=== PATIENT | female | born 1940 | race African-American/Black ===

== ENCOUNTER 2016-06-02 20:34 | Outpatient (CLI) | payer MEDICARE, MEDICAID | END 2016-06-02 20:35 | disposition home or self-care (01) | LOC: NAV SJFMSP 20:34 | PROVIDERS: ATTEND Family Medicine | DX: R30.0 Dysuria (principal) | CPT/HCPCS: 87086 ==

== ENCOUNTER 2016-07-10 23:33 | Emergency (ER) | payer MEDICARE, MEDICAID ==
[2016-07-10] MEDS ORDERED: predniSONE 20 MG TAB ONE (23:56)
[2016-07-10] MEDS ORDERED: diphenhydrAMINE HCl 25 MG CAP ONE (23:56)
== END 2016-07-11 | disposition home or self-care (01) ==
LOC: NAV ERS 23:33
DX: T78.40XA Allergy, unspecified, initial encounter (principal); L50.9 Urticaria, unspecified; E78.5 Hyperlipidemia, unspecified; E78.00 Pure hypercholesterolemia, unspecified; I10 Essential (primary) hypertension; F41.9 Anxiety disorder, unspecified; F32.9 Major depressive disorder, single episode, unspecified; Z87.891 Personal history of nicotine dependence
CPT/HCPCS: 99282; J7506

== ENCOUNTER 2016-10-23 13:46 | Outpatient (CLI) | payer MEDICARE, MEDICAID ==
[2016-10-23 14:40] LABS: INR-International Normal Ratio 1.9; Prothrombin Time 22.6 SEC (12.0-14.7)
[2016-10-24 05:18] LABS: PTT 39.8 SEC (22.9-36.1)
== END 2016-10-23 13:47 | disposition home or self-care (01) ==
LOC: NAV LAB 13:46
PROVIDERS: ATTEND Family Medicine
DX: I48.91 Unspecified atrial fibrillation (principal)
CPT/HCPCS: 36415; 85610; 85730

== ENCOUNTER 2016-12-04 06:11 | Emergency (ER) | payer MEDICARE, MEDICAID ==
[2016-12-04] MEDS ORDERED: Milk Of Magnesia 30 ML UDCUP ONE ×2 (06:38→06:58)
[2016-12-04] MEDS ORDERED: Lidocaine Viscous Sol 2% 15 ml UD Cup ONE (06:55)
[2016-12-04] MEDS ORDERED: Ondansetron HCl/PF 4 MG/2 ML Vial ONE (06:55)
[2016-12-04] MEDS ORDERED: Sodium Chloride 0.9% 1,000 ML ONE ×2 (06:55→07:41)
[2016-12-04] MEDS ORDERED: Mag-Al Plus 1200 MG/1200 MG/120 MG/30 ML UDCUP ONE ×2 (06:55→07:13)
[2016-12-04 07:09] LABS: Hemoglobin 11.7 g/dL (12.0-16.0); Mean Corpuscular HGB CONC 30.9 g/dL (32.0-36.0); Mean Corpuscular Volume 87.5 fl (81.0-99.0); Mean Platelet Volume 5.8 fL (7.4-10.4); Platelet Count 239 thou/uL (130-400); RBC Distribution Width 13.9 % (11.5-14.5); Red Blood Cell (RBC) Count 4.32 mill/uL (4.20-5.40)
[2016-12-04 07:10] LABS: #Eosinphils 0.1 thou/uL (0.0-0.7); #Lymphocytes 0.6 thou/uL (1.20-3.40); #Monocytes 0.4 thou/uL (0.11-0.59); #Neutrophils 4.9 thou/uL (1.40-6.50); %Basophils 0.5 % (0.0-1.0); %Lymphocytes 9.4 % (21.0-51.0); %Monocytes 6.5 % (0.0-10.0); %Neutrophils 81.6 % (42.0-75.0); INR-International Normal Ratio 1.9; PTT 35.9 SEC (22.9-36.1); Prothrombin Time 21.9 SEC (12.0-14.7)
[2016-12-04 07:20] LABS: CKMB 1.2 ng/mL (0-6.6); Troponin I 0.015 ng/mL (< 0.028)
[2016-12-04 07:27] LABS: ALT (SGPT) 12 U/L (8-55); AST (SGOT) 21 U/L (5-34); Albumin 4.1 g/dL (3.4-4.8); Alkaline Phosphatase 88 U/L (40-150); Anion Gap 17 mmol/L (10-20); BUN (Urea Nitrogen) 36 mg/dL (9.8-20.1); Bilirubin, Total 0.4 mg/dL (0.2-1.2); CK (CPK) 163 U/L (29-168); Calc. Creatinine Clearance 0 mL/min (70-130); Calcium 8.8 mg/dL (7.8-10.44); Carbon Dioxide 26 mmol/L (23-31); Chloride 104 mmol/L (98-107); Estimated GFR-MDRD 44; Globulin 3.1 g/dL (2.4-3.5); Glucose 99 mg/dL (83-110); Lipase 45 U/L (8-78); Protein, Total 7.2 g/dL (6.0-8.3); Sodium 143 mmol/L (136-145)
[2016-12-04] MEDS ORDERED: Mag-Al Plus 1200 MG/1200 MG/120 MG/30 ML UDCUP PO SCH (07:30)
[2016-12-04 08:25] LABS: Bilirubin Negative (Negative); Blood, Urine Trace (Negative); Clarity Clear (Clear); Glucose, Urine (Dipstick) Negative (Negative); Leukocyte Negative (Negative); Nitrite Negative (Negative); Protein, Urine (Dipstick) Negative (Neg-Trace); Urobilinogen 0.2 mg/dL (0.2-1.0); pH, Urine 5.5 (5.0-9.0)
[2016-12-04 08:36] LABS: Bacteria/HPF Rare-Few HPF (None Seen); Crystals/HPF 1+ STARCH HPF (Negative); Squamous Epithelial 0-3 HPF (0-3); WBC/HPF 0-3 HPF (0-3)
[2016-12-04] MEDS ORDERED: Iopamidol 370 76% 100 ML VIAL ONE (09:00)
[2016-12-04 10:48] LABS: ALT (SGPT) 9 U/L (8-55); AST (SGOT) 17 U/L (5-34); Albumin 3.7 g/dL (3.4-4.8); Alkaline Phosphatase 80 U/L (40-150); Anion Gap 14 mmol/L (10-20); BUN (Urea Nitrogen) 34 mg/dL (9.8-20.1); Bilirubin, Total 0.4 mg/dL (0.2-1.2); Calc. Creatinine Clearance 0 mL/min (70-130); Calcium 8.4 mg/dL (7.8-10.44); Carbon Dioxide 26 mmol/L (23-31); Chloride 106 mmol/L (98-107); Estimated GFR-MDRD 52; Globulin 3.3 g/dL (2.4-3.5); Glucose 104 mg/dL (83-110); Potassium 4.2 mmol/L (3.5-5.1); Sodium 142 mmol/L (136-145)
--- NOTE | 2016-12-04 12:14 | CT ---
CT ABDOMEN AND PELVIS WITH IV AND ORAL CONTRAST: Date: 12/04/16 HISTORY: Abdomen pain. Breast cancer. COMPARISON: 01/08/14. FINDINGS: Visualized lung bases are clear. The liver, spleen, kidneys, adrenal glands, and pancreas have a nor mal CT appearance. Urinary bladder is unremarkable. There is no evidence of bowel obstruction. Appen claudia is not inflamed. There are degenerative changes of the lumbar spine. IMPRESSION: No significant abnormalities are demonstrated to explain abdominal pain. POS: [facility]
[2016-12-04 12:27] LABS: Troponin I 0.019 ng/mL (< 0.028)
[2016-12-04] MEDS ORDERED: HYDROcodone/Acetaminophen 10/325 mg Tablet ONE (12:27)
== END 2016-12-04 12:55 | disposition home or self-care (01) ==
LOC: NAV ERS 06:11
DX: R10.13 Epigastric pain (principal); I48.91 Unspecified atrial fibrillation; E78.5 Hyperlipidemia, unspecified; I10 Essential (primary) hypertension; I49.9 Cardiac arrhythmia, unspecified; F41.9 Anxiety disorder, unspecified; F32.9 Major depressive disorder, single episode, unspecified; Z87.891 Personal history of nicotine dependence; Z79.01 Long term (current) use of anticoagulants; Z79.899 Other long term (current) drug therapy
CPT/HCPCS: 74177; 80053; 81003; 81015; 82550; 82553; 83690; 84484; 85025; 85610; 85730; 93005; 96361; 96374; J2405; J3475; J7050

== ENCOUNTER 2017-03-06 21:23 | Emergency (ER) | payer MEDICARE, MEDICAID ==
[2017-03-06] MEDS ORDERED: Lorazepam 2 MG/ML VIAL ONE (21:42)
== END 2017-03-06 22:02 | disposition home or self-care (01) ==
LOC: NAV ERS 21:23
DX: F41.9 Anxiety disorder, unspecified (principal); F17.220 Nicotine dependence, chewing tobacco, uncomplicated; F32.9 Major depressive disorder, single episode, unspecified; I10 Essential (primary) hypertension; E78.5 Hyperlipidemia, unspecified; I48.91 Unspecified atrial fibrillation; Z79.01 Long term (current) use of anticoagulants; Z79.899 Other long term (current) drug therapy; Z85.3 Personal history of malignant neoplasm of breast
CPT/HCPCS: 96372; J2060

== ENCOUNTER 2017-03-26 20:46 | Emergency (ER) | payer MEDICARE, MEDICAID ==
--- NOTE | 2017-03-26 22:04 | RAD ---
RIGHT FOOT THREE VIEWS: History: Right foot pain. FINDINGS: Lisfranc joint alignment is anatomic. Pes planus is apparent on the lateral view. Hallux valgus and bunion deformity are apparent. Osteoarthritic changes are somewhat pronounced at the tarsal metatars al joint. IMPRESSION: 1. Prominent hallux valgus and bunion deformity. 2. Osteoarthritic changes at the tarsal metatarsal joints. POS: [facility]
== END 2017-03-26 21:40 | disposition home or self-care (01) ==
LOC: NAV ERS 20:46
DX: M79.671 Pain in right foot (principal); I48.91 Unspecified atrial fibrillation; E78.5 Hyperlipidemia, unspecified; I10 Essential (primary) hypertension; M19.90 Unspecified osteoarthritis, unspecified site; F41.9 Anxiety disorder, unspecified; F32.9 Major depressive disorder, single episode, unspecified; F17.220 Nicotine dependence, chewing tobacco, uncomplicated; Z85.3 Personal history of malignant neoplasm of breast; Z92.21 Personal history of antineoplastic chemotherapy

== ENCOUNTER 2017-06-22 13:33 | Emergency (ER) | payer MEDICARE, MEDICAID ==
[2017-06-22] MEDS ORDERED: cloNIDine 0.1 MG TAB ONE (14:06)
[2017-06-22 14:31] LABS: INR-International Normal Ratio 1.7; Prothrombin Time 20.6 SEC (12.0-14.7)
[2017-06-22 14:41] LABS: ALT (SGPT) 13 U/L (8-55); AST (SGOT) 16 U/L (5-34); Alkaline Phosphatase 85 U/L (40-150); Anion Gap 14 mmol/L (10-20); BUN (Urea Nitrogen) 27 mg/dL (9.8-20.1); Bilirubin, Total 0.4 mg/dL (0.2-1.2); Calc. Creatinine Clearance 0 mL/min (70-130); Calcium 9.4 mg/dL (7.8-10.44); Carbon Dioxide 27 mmol/L (23-31); Chloride 104 mmol/L (98-107); Estimated GFR-MDRD 45; Globulin 3.4 g/dL (2.4-3.5); Glucose 128 mg/dL (83-110); Lipase 25 U/L (8-78); Potassium 4.1 mmol/L (3.5-5.1); Protein, Total 7.4 g/dL (6.0-8.3); Sodium 141 mmol/L (136-145)
[2017-06-22 14:42] LABS: CKMB 0.9 ng/mL (0-6.6)
[2017-06-22 14:49] LABS: #Eosinphils 0.2 thou/uL (0.0-0.7); #Lymphocytes 1.1 thou/uL (1.20-3.40); #Monocytes 0.4 thou/uL (0.11-0.59); #Neutrophils 2.2 thou/uL (1.40-6.50); %Basophils 1.1 % (0.0-1.0); %Eosinophils 4.7 % (0.0-10.0); %Lymphocytes 29.1 % (21.0-51.0); %Monocytes 8.9 % (0.0-10.0); %Neutrophils 56.3 % (42.0-75.0); Hemoglobin 11.3 g/dL (12.0-16.0); Mean Corpuscular HGB CONC 30.5 g/dL (32.0-36.0); Mean Corpuscular Hemoglobin 26.8 pg (27.0-31.0); Mean Corpuscular Volume 87.8 fl (81.0-99.0); Platelet Count 188 thou/uL (130-400); Red Blood Cell (RBC) Count 4.21 mill/uL (4.20-5.40); White Blood Cell (WBC) Count 3.9 thou/uL (4.8-10.8)
[2017-06-22 14:55] LABS: Large Platelets SLIGHT; MDiff Complete? YES; PLT Morphology Comment Appears Adequate; RBC Morphology Normal
--- NOTE | 2017-06-22 15:05 | RAD ---
PA AND LATERAL VIEWS OF CHEST: Date: 06/22/17 HISTORY: Shortness of breath and heart flutter. FINDINGS: Comparison made with exam of 01/20/16. The heart size is normal. The aorta is tortuous. The lungs are expanded without focal areas of consol idation, pneumothorax, or pleural effusions. There are degenerative changes in the spine. There are s urgical clips in the right axilla. IMPRESSION: No radiographic evidence of acute cardiopulmonary process. POS: [facility]
--- NOTE | 2017-06-22 15:08 | RAD ---
2 VIEWS ABDOMEN: Date: 06/22/17 HISTORY: Abdominal pain, shortness of breath, and heart fluttering for 2-3 days. COMPARISON: 02/08/16. FINDINGS: Monitor leads overlie the left upper quadrant. Bowel gas pattern is overall nonspecific. Lung bases a re not well visualized on this exam. No suspicious calcifications are seen. Phlebolith overlies the l eft hemipelvis with calcified granuloma overlying the right gluteal region. Degenerative changes are noted in the spine. IMPRESSION: Nonspecific bowel gas pattern. POS: [facility]
== END 2017-06-22 15:34 | disposition home or self-care (01) ==
LOC: NAV ERS 13:33
DX: R00.2 Palpitations (principal); K21.9 Gastro-esophageal reflux disease without esophagitis; I48.91 Unspecified atrial fibrillation; E78.5 Hyperlipidemia, unspecified; I10 Essential (primary) hypertension; M19.90 Unspecified osteoarthritis, unspecified site; F41.9 Anxiety disorder, unspecified; F32.9 Major depressive disorder, single episode, unspecified; Z85.3 Personal history of malignant neoplasm of breast; F17.220 Nicotine dependence, chewing tobacco, uncomplicated; Z79.01 Long term (current) use of anticoagulants; Z79.899 Other long term (current) drug therapy
CPT/HCPCS: 71046; 74019; 80053; 82553; 83690; 84484; 85025; 85610; 93005; 94760

== ENCOUNTER 2017-09-15 16:37 | Emergency (ER) | payer MEDICARE, MEDICAID ==
--- NOTE | 2017-09-15 17:16 | RAD ---
PORTABLE CHEST ONE VIEW: 09/15/17 HISTORY: 77-year-old female with history of dyspnea, palpitations, and shortness of breath. COMPARISON: 11/03/15. Monitor leads overlie the chest. Heart size is within normal limits. There appears to be a somewhat U -shaped possible clip or foreign body overlying the right chest. There are surgical clips in the righ t axilla. Appearance is stable from prior study of 11/03/15. IMPRESSION: Surgical clips right axilla. No acute intrathoracic disease. POS: [facility]
[2017-09-15 17:19] LABS: INR-International Normal Ratio 1.8; PTT 36.9 SEC (22.9-36.1); Prothrombin Time 21.1 SEC (12.0-14.7)
[2017-09-15 17:28] LABS: #Eosinphils 0.2 thou/uL (0.0-0.7); #Lymphocytes 1.5 thou/uL (1.20-3.40); #Monocytes 0.7 thou/uL (0.11-0.59); #Neutrophils 2.6 thou/uL (1.40-6.50); %Basophils 0.5 % (0.0-1.0); %Eosinophils 3.5 % (0.0-10.0); %Lymphocytes 31.1 % (21.0-51.0); %Monocytes 13.3 % (0.0-10.0); %Neutrophils 51.6 % (42.0-75.0); Hemoglobin 10.8 g/dL (12.0-16.0); Mean Corpuscular HGB CONC 31.5 g/dL (32.0-36.0); Mean Corpuscular Hemoglobin 27.1 pg (27.0-31.0); Mean Platelet Volume 6.4 fL (7.4-10.4); Platelet Count 201 thou/uL (130-400); RBC Distribution Width 13.7 % (11.5-14.5); Troponin I Less than 0.010 ng/mL (< 0.028)
[2017-09-15 17:47] LABS: ALT (SGPT) 11 U/L (8-55); AST (SGOT) 18 U/L (5-34); Albumin 3.8 g/dL (3.4-4.8); Alkaline Phosphatase 76 U/L (40-150); Anion Gap 15 mmol/L (10-20); BUN (Urea Nitrogen) 24 mg/dL (9.8-20.1); Bilirubin, Total 0.3 mg/dL (0.2-1.2); Calc. Creatinine Clearance 0 mL/min (70-130); Calcium 8.9 mg/dL (7.8-10.44); Carbon Dioxide 27 mmol/L (23-31); Chloride 103 mmol/L (98-107); Estimated GFR-MDRD 48; Globulin 3.2 g/dL (2.4-3.5); Glucose 102 mg/dL (83-110); Potassium 3.9 mmol/L (3.5-5.1); Sodium 141 mmol/L (136-145)
--- NOTE | 2017-09-15 19:48 | CT ---
CT PULMONARY ANGIO OF CHEST INCLUDING 3D RENDERIN09/15/17 HISTORY: 77-year-old female with history of dyspnea, palpitations, shortness of breath, and elevated D-dimer. No significant CT evidence for acute pulmonary embolism. No evidence of aortic aneurysm. There is gina e chronic changes, primarily pleural based, in the right upper lobe and also in the left lower lobe. There are old granuloma calcifications. There is a 0.5 cm diameter subpleural nodule medially in the left lower lobe. Upper abdomen is unremarkable. IMPRESSION: No significant CT evidence for acute pulmonary embolism. A 0.5 cm diameter subpleural nodule in the l eft lower lobe medially. Old granulomatous disease. Minimal scarring in the right upper lobe and left lower lobe. POS: [facility]
[2017-09-15 21:20] LABS: CKMB 2.1 ng/mL (0-6.6); Troponin I Less than 0.010 ng/mL (< 0.028)
== END 2017-09-15 21:35 | disposition home or self-care (01) ==
LOC: NAV ERS 16:37
DX: I48.91 Unspecified atrial fibrillation (principal); I45.10 Unspecified right bundle-branch block; E78.5 Hyperlipidemia, unspecified; I10 Essential (primary) hypertension; M19.90 Unspecified osteoarthritis, unspecified site; F41.9 Anxiety disorder, unspecified; F32.9 Major depressive disorder, single episode, unspecified; F17.220 Nicotine dependence, chewing tobacco, uncomplicated; Z85.3 Personal history of malignant neoplasm of breast; Z79.01 Long term (current) use of anticoagulants; Z79.899 Other long term (current) drug therapy
CPT/HCPCS: 71045; 71275; 80053; 82553; 83880; 84484; 85025; 85379; 85610; 85730; 93005; 94760

== ENCOUNTER 2018-01-20 01:11 | Emergency (ER) | payer MEDICAID, MEDICARE ==
[2018-01-20] MEDS ORDERED: diphenhydrAMINE 25 MG CAP ONE (01:27)
[2018-01-20] MEDS ORDERED: predniSONE 20 MG TAB ONE (01:27)
== END 2018-01-20 01:31 | disposition home or self-care (01) ==
LOC: NAV ERS 01:11
DX: T78.40XA Allergy, unspecified, initial encounter (principal); I48.91 Unspecified atrial fibrillation; E78.5 Hyperlipidemia, unspecified; I10 Essential (primary) hypertension; F41.9 Anxiety disorder, unspecified; F32.9 Major depressive disorder, single episode, unspecified; F17.220 Nicotine dependence, chewing tobacco, uncomplicated; Z79.899 Other long term (current) drug therapy; Z79.01 Long term (current) use of anticoagulants
CPT/HCPCS: 99282; J7506

== ENCOUNTER 2018-02-17 13:25 | Emergency (ER) | payer MEDICARE ==
[2018-02-17 14:13] LABS: Mean Corpuscular HGB CONC 31.3 g/dL (32.0-36.0); Mean Corpuscular Volume 89.5 fL (78.0-98.0); Mean Platelet Volume 6.2 fL (7.4-10.4); Platelet Count 294 thou/uL (130-400); RBC Distribution Width 13.8 % (11.5-14.5); Red Blood Cell (RBC) Count 3.93 mill/uL (4.20-5.40); White Blood Cell (WBC) Count 5.7 thou/uL (4.8-10.8)
[2018-02-17 14:34] LABS: ALT (SGPT) 18 U/L (8-55); AST (SGOT) 20 U/L (5-34); Albumin 3.9 g/dL (3.4-4.8); Alkaline Phosphatase 82 U/L (40-150); Anion Gap 16 mmol/L (10-20); BUN (Urea Nitrogen) 26 mg/dL (9.8-20.1); Bilirubin, Total 0.3 mg/dL (0.2-1.2); Calc. Creatinine Clearance 0 mL/min (70-130); Calcium 9.1 mg/dL (7.8-10.44); Carbon Dioxide 26 mmol/L (23-31); Chloride 102 mmol/L (98-107); Estimated GFR-MDRD 37; Glucose 92 mg/dL (83-110); Potassium 4.8 mmol/L (3.5-5.1); Protein, Total 6.9 g/dL (6.0-8.3); Sodium 139 mmol/L (136-145)
[2018-02-17 14:35] LABS: CKMB 0.9 ng/mL (0-6.6); Troponin I Less than 0.010 ng/mL (< 0.028)
--- NOTE | 2018-02-17 14:37 | RAD ---
CHEST 2 VIEWS: HISTORY: Cough. Fever. COMPARISON: 06/23/2017. FINDINGS: Cardiac silhouette is unremarkable. Pulmonary vasculature upper limits of normal. Mediastinum is mi dline with dual-lead subclavian cardiac electronic device. Metallic clips overlie the right axilla. No lobar consolidation, pneumothorax, or pleural fluid. IMPRESSION: Chronic-type findings are stable. No active cardiopulmonary abnormalities are demonstrated. POS: [facility]
[2018-02-17 14:38] LABS: Eosinophils 8 % (0-10); Lymphocytes 23 % (21-51); MDiff Complete? YES; Monocytes 5 % (0-10); Neutrophil 64 % (42-75); PLT Morphology Comment Appears Adequate; RBC Morphology Normal
== END 2018-02-17 16:03 | disposition short-term general hospital (02) ==
LOC: NAV ERS 13:25
DX: R07.81 Pleurodynia (principal); R06.02 Shortness of breath; I48.91 Unspecified atrial fibrillation; E78.5 Hyperlipidemia, unspecified; I10 Essential (primary) hypertension; F41.9 Anxiety disorder, unspecified; F32.9 Major depressive disorder, single episode, unspecified; F17.220 Nicotine dependence, chewing tobacco, uncomplicated; Z79.899 Other long term (current) drug therapy; Z79.01 Long term (current) use of anticoagulants
CPT/HCPCS: 71046; 80053; 82553; 83880; 84484; 85025; 85379; 93005; 94760

== ENCOUNTER 2018-03-01 01:11 | Emergency (ER) | payer MEDICARE ==
[2018-03-01 02:04] LABS: INR-International Normal Ratio 2.8; PTT 41.4 SEC (22.9-36.1); Prothrombin Time 29.1 SEC (12.0-14.7)
[2018-03-01 02:07] LABS: Anisocytosis SLIGHT = 6-15 cells (100X) (0-5/hpf); Band 7 % (5-11); Eosinophils 2 % (0-10); Hemoglobin 10.7 g/dL (12.0-16.0); Hypochromia SLIGHT = 6-15 cells (100X) (0-5/hpf); Lymphocytes 36 % (21-51); MDiff Complete? YES; Mean Corpuscular HGB CONC 30.7 g/dL (32.0-36.0); Mean Corpuscular Hemoglobin 27.4 pg (27.0-31.0); Mean Corpuscular Volume 89.1 fL (78.0-98.0); Mean Platelet Volume 6.2 fL (7.4-10.4); Monocytes 5 % (0-10); Neutrophil 50 % (42-75); PLT Morphology Comment Appears Adequate; Platelet Count 299 thou/uL (130-400); Polychromasia SLIGHT = 2-3 cells (100X) (0-2/hpf); RBC Distribution Width 14.1 % (11.5-14.5); White Blood Cell (WBC) Count 5.8 thou/uL (4.8-10.8)
[2018-03-01 02:09] LABS: Anion Gap 15 mmol/L (10-20); BUN (Urea Nitrogen) 35 mg/dL (9.8-20.1); Calc. Creatinine Clearance 0 mL/min (70-130); Calcium 8.9 mg/dL (7.8-10.44); Carbon Dioxide 29 mmol/L (23-31); Chloride 101 mmol/L (98-107); Estimated GFR-MDRD 32; Glucose 109 mg/dL (83-110); Potassium 4.7 mmol/L (3.5-5.1); Sodium 140 mmol/L (136-145)
[2018-03-01 02:14] LABS: CKMB 1.1 ng/mL (0-6.6)
--- NOTE | 2018-03-01 08:06 | RAD ---
CHEST ONE VIEW: HISTORY: Dyspnea. COMPARISON: 09/15/2017 FINDINGS: Left-sided transvenous pacemaker with lead position over the right atrium and right ventricle. Sadaf l cardiac silhouette. There is calcification of the AP window lymph node. The pulmonary vessels are within normal limits. The costophrenic angles are clear. No masses or consolidation. No pneumotho rax or osseous abnormalities. Surgical clips project over the right axilla. IMPRESSION: No acute cardiopulmonary process. POS: [facility]
== END 2018-03-01 02:57 | disposition home or self-care (01) ==
LOC: NAV ERS 01:11
DX: R06.02 Shortness of breath (principal); N28.9 Disorder of kidney and ureter, unspecified; I48.91 Unspecified atrial fibrillation; E78.5 Hyperlipidemia, unspecified; I10 Essential (primary) hypertension; F41.9 Anxiety disorder, unspecified; F32.9 Major depressive disorder, single episode, unspecified; F17.220 Nicotine dependence, chewing tobacco, uncomplicated; Z79.899 Other long term (current) drug therapy; Z79.01 Long term (current) use of anticoagulants
CPT/HCPCS: 71045; 80048; 82553; 83880; 84484; 85025; 85610; 85730

== ENCOUNTER 2018-06-17 19:43 | Emergency (ER) | payer MEDICARE ==
[2018-06-17] MEDS ORDERED: Albuterol Sulfate 2.5 mg/0.5 ml Neb ONE (20:31)
[2018-06-17] MEDS ORDERED: Sodium Chloride For Inhalation 0.9% 3 ML NEB ONE (20:34)
--- NOTE | 2018-06-17 20:41 | RAD ---
AP VIEW CHEST: 06/17/2018 HISTORY: Dyspnea. COMPARISON: 03/01/2018 FINDINGS: AP view chest demonstrates a dual-lead intracardiac pacing device. Mild cardiomegaly and pulmonary v ascular congestion are seen. No evidence of effusion, pneumonia, or pneumothorax is seen. IMPRESSION: Cardiomegaly and pulmonary vascular congestion. POS: [facility]
[2018-06-17 20:44] LABS: #Basophils 0.1 thou/uL (0.0-0.2); #Eosinphils 0.2 thou/uL (0.0-0.7); #Lymphocytes 1.2 thou/uL (1.20-3.40); #Monocytes 0.5 thou/uL (0.11-0.59); #Neutrophils 2.6 thou/uL (1.40-6.50); %Basophils 1.9 % (0.0-1.0); %Eosinophils 3.8 % (0.0-10.0); %Lymphocytes 27.1 % (21.0-51.0); %Monocytes 11.5 % (0.0-10.0); %Neutrophils 55.7 % (42.0-75.0); Hemoglobin 10.7 g/dL (12.0-16.0); Mean Corpuscular HGB CONC 31.7 g/dL (32.0-36.0); Mean Corpuscular Volume 85.3 fL (78.0-98.0); Mean Platelet Volume 6.5 fL (7.4-10.4); Platelet Count 226 thou/uL (130-400); RBC Distribution Width 14.5 % (11.5-14.5); Red Blood Cell (RBC) Count 3.96 mill/uL (4.20-5.40); White Blood Cell (WBC) Count 4.6 thou/uL (4.8-10.8)
[2018-06-17 20:53] LABS: ALT (SGPT) 40 U/L (8-55); AST (SGOT) 46 U/L (5-34); Albumin 3.8 g/dL (3.4-4.8); Alkaline Phosphatase 82 U/L (40-150); Anion Gap 15 mmol/L (10-20); BUN (Urea Nitrogen) 29 mg/dL (9.8-20.1); Bilirubin, Total 0.5 mg/dL (0.2-1.2); CK (CPK) 132 U/L (29-168); Calc. Creatinine Clearance 0 mL/min (70-130); Calcium 9.3 mg/dL (7.8-10.44); Carbon Dioxide 24 mmol/L (23-31); Chloride 105 mmol/L (98-107); Estimated GFR-MDRD 35; Glucose 102 mg/dL (83-110); Potassium 3.7 mmol/L (3.5-5.1); Protein, Total 6.8 g/dL (6.0-8.3); Sodium 140 mmol/L (136-145)
[2018-06-17] MEDS ORDERED: Furosemide 40 MG/4 ML VIAL ONE (21:21)
== END 2018-06-17 22:45 | disposition home or self-care (01) ==
LOC: NAV ERS 19:43
DX: I11.0 Hypertensive heart disease with heart failure (principal); I50.9 Heart failure, unspecified; I48.91 Unspecified atrial fibrillation; E78.5 Hyperlipidemia, unspecified; M19.90 Unspecified osteoarthritis, unspecified site; F41.9 Anxiety disorder, unspecified; F32.9 Major depressive disorder, single episode, unspecified; F17.210 Nicotine dependence, cigarettes, uncomplicated; Z79.899 Other long term (current) drug therapy; Z79.01 Long term (current) use of anticoagulants
CPT/HCPCS: 71045; 80053; 82550; 83880; 84484; 85025; 93005; 96374; J1940; J7611

== ENCOUNTER 2018-07-19 21:57 | Inpatient (IN) | payer MEDICARE ==
[2018-07-19 22:30] LABS: INR-International Normal Ratio 1.6; Prothrombin Time 19.4 SEC (12.0-14.7)
[2018-07-19 22:33] LABS: Hemoglobin 10.7 g/dL (12.0-16.0); Mean Corpuscular HGB CONC 30.2 g/dL (32.0-36.0); Mean Corpuscular Hemoglobin 25.8 pg (27.0-31.0); Mean Corpuscular Volume 85.6 fL (78.0-98.0); Mean Platelet Volume 6.5 fL (7.4-10.4); Platelet Count 223 thou/uL (130-400); RBC Distribution Width 14.9 % (11.5-14.5); Red Blood Cell (RBC) Count 4.13 mill/uL (4.20-5.40); White Blood Cell (WBC) Count 4.9 thou/uL (4.8-10.8)
[2018-07-19 22:38] LABS: ALT (SGPT) 39 U/L (8-55); AST (SGOT) 47 U/L (5-34); Albumin 3.7 g/dL (3.4-4.8); Alkaline Phosphatase 97 U/L (40-150); Anion Gap 17 mmol/L (10-20); BUN (Urea Nitrogen) 48 mg/dL (9.8-20.1); Bilirubin, Total 0.9 mg/dL (0.2-1.2); Calc. Creatinine Clearance 0 mL/min (70-130); Calcium 9.5 mg/dL (7.8-10.44); Carbon Dioxide 25 mmol/L (23-31); Chloride 96 mmol/L (98-107); Estimated GFR-MDRD 33; Globulin 3.1 g/dL (2.4-3.5); Glucose 112 mg/dL (83-110); Potassium 3.9 mmol/L (3.5-5.1); Protein, Total 6.8 g/dL (6.0-8.3); Sodium 134 mmol/L (136-145)
[2018-07-19 22:42] LABS: Eosinophils 5 % (0-10); Hypochromia SLIGHT = 6-15 cells (100X) (0-5/hpf); Lymphocytes 20 % (21-51); MDiff Complete? YES; Monocytes 5 % (0-10); Neutrophil 71 % (42-75); Ovalocytes SLIGHT = 2-5 cells (100X) (0-1/hpf); Platelet Morphology Comment Appears Adequate
--- NOTE | 2018-07-19 22:52 | RAD ---
CHEST ONE VIEW 07/19/18 INDICATION: Shortness of breath. Chest pain. COMPARISON: Prior exam dated 06/17/18. FINDINGS: There is a stable dual lead pacemaker. There is mild cardiomegaly with mild pulmonary vascular conges tion. No consolidation, pleural effusion, pneumothorax evident. Surgical clips are again seen within the right axillary region. No acute osseous abnormality is evident. IMPRESSION: Cardiomegaly with mild pulmonary vascular congestion. POS: [facility]
[2018-07-19] MEDS ORDERED: Furosemide 40 MG/4 ML VIAL ONE (23:56)
[2018-07-20 00:56] VITALS: BMI 45.8
[2018-07-20] MEDS ORDERED: Lorazepam 1 MG TAB PO PRN ×2 (01:29→07:43)
[2018-07-20 05:52] LABS: White Blood Cell (WBC) Count 5.5 thou/uL (4.8-10.8)
[2018-07-20 05:53] LABS: Hemoglobin 10.2 g/dL (12.0-16.0); Mean Corpuscular HGB CONC 29.9 g/dL (32.0-36.0); Mean Corpuscular Hemoglobin 25.9 pg (27.0-31.0); Mean Corpuscular Volume 86.8 fL (78.0-98.0); Red Blood Cell (RBC) Count 3.92 mill/uL (4.20-5.40)
[2018-07-20 05:54] LABS: Anion Gap 16 mmol/L (10-20); BUN (Urea Nitrogen) 45 mg/dL (9.8-20.1); Calc. Creatinine Clearance 63 mL/min (70-130); Calcium 9.4 mg/dL (7.8-10.44); Carbon Dioxide 22 mmol/L (23-31); Chloride 101 mmol/L (98-107); Estimated GFR-MDRD 39; Glucose 84 mg/dL (83-110); Manual Diff?? YES; Mean Platelet Volume 6.4 fL (7.4-10.4); Platelet Count 203 thou/uL (130-400); Potassium 4.1 mmol/L (3.5-5.1); RBC Distribution Width 15.4 % (11.5-14.5); Sodium 135 mmol/L (136-145)
[2018-07-20 05:55] LABS: Band 3 % (5-11); Eosinophils 2 % (0-10); Lymphocytes 34 % (21-51); MDiff Complete? YES; Monocytes 1 % (0-10); Neutrophil 60 % (42-75)
[2018-07-20 05:56] LABS: Delete Auto Diff?? YES; Hypochromia SLIGHT = 6-15 cells (100X) (0-5/hpf)
[2018-07-20 05:57] LABS: Anisocytosis SLIGHT = 6-15 cells (100X) (0-5/hpf); Platelet Morphology Comment Appears Adequate
[2018-07-20] MEDS ORDERED: Guaifenesin DM 100-10/5 ML UDCUP PO PRN (07:46)
[2018-07-20] MEDS ORDERED: Acetaminophen 325 MG TAB PO PRN (07:46)
[2018-07-20] MEDS ORDERED: Bisacodyl 5 MG TAB PO PRN (07:46)
[2018-07-20] MEDS ORDERED: Loperamide HCl 2 MG CAP PO PRN (07:46)
[2018-07-20] MEDS ORDERED: Senokot S 8.6-50 MG TAB PO PRN (07:46)
[2018-07-20] MEDS ORDERED: Losartan 25 MG TAB PO SCH (09:00)
[2018-07-20] MEDS ORDERED: Anastrozole 1 MG TAB PO SCH (09:00)
[2018-07-20] MEDS ORDERED: Non-Formulary Item 1 EACH (Calcium Carbonate/Vitamin D3 [Calcium 600 + Vitamin D] 1 TABLE PO SCH (09:00)
[2018-07-20] MEDS ORDERED: Warfarin Sodium 5 MG TAB PO SCH (09:00)
[2018-07-20] MEDS ORDERED: Torsemide 20 MG TAB PO SCH (09:00)
[2018-07-20] MEDS ORDERED: Non-Formulary Item 1 EACH (Omeprazole [Omeprazole] 40 MG) PO SCH (09:00)
[2018-07-20] MEDS ORDERED: Pravastatin Sodium 40 MG TAB PO SCH (09:00)
[2018-07-20] MEDS ORDERED: Non-Formulary Item 1 EACH (Fluoxetine Hcl [Fluoxetine Hcl] 20 MG) PO SCH (09:00)
[2018-07-20] MEDS ORDERED: FLECAINIDE PO SCH (09:00)
[2018-07-20] MEDS ORDERED: Furosemide 20 MG TAB PO SCH ×2 (09:00→20:30)
[2018-07-20] MEDS: FLUoxetine HCl 20 MG CAP PO SCH (09:12)
[2018-07-20] MEDS: Torsemide 20 MG TAB PO SCH (09:13)
[2018-07-20] MEDS: Calcium Carbonate + Vit D 1 TAB PO SCH (09:13)
[2018-07-20] MEDS: Anastrozole 1 MG TAB PO SCH (09:13)
[2018-07-20] MEDS: Famotidine 20 MG TAB PO SCH ×2 (09:13→20:31)
[2018-07-20] MEDS: Losartan 25 MG TAB PO SCH (09:14)
[2018-07-20] MEDS: FLECAINIDE 100 MG PO SCH ×2 (09:15→11:05)
[2018-07-20 09:59] LABS: INR-International Normal Ratio 1.7; Prothrombin Time 19.9 SEC (12.0-14.7)
--- NOTE | 2018-07-20 12:23 | HP ---
HISTORY OF PRESENT ILLNESS: Ms. Gusman is a very pleasant 78-year-old black female who came to the emergency room late last night, complaining of shortness of breath. She states it has been going on for the last 3 to 4 days. She has had some increased swelling in her legs, and she did increase her diuretic, but that did not help much. She has had increased dyspnea on exertion, and she has been very weak. She has difficulty breathing when she lies down. She was seen in the emergency room, found to be in early congestive heart failure, given some IV Lasix and admitted to the hospital for further diuresis and monitoring. PAST MEDICAL HISTORY: Significant for the following; 1. Diastolic congestive heart failure with echo ejection fraction 60%. 2. Atrial fibrillation. 3. Cardiomyopathy. 4. Coronary artery disease. 5. Prior PTCA. 6. Hyperlipidemia. 7. Hypertension. 8. Chronic kidney disease, stage 3. 9. Osteoarthritis. 10. Gastroesophageal reflux disease. 11. Chronic anemia. 12. Mild intermittent asthma in the distant past. 13. Breast cancer, right breast. 14. Depression. 15. Generalized weakness. PAST SURGICAL HISTORY: 1. Cardiac catheterization. 2. Pacemaker placement. 3. Right mastectomy for breast cancer with followup chemotherapy and radiation. 4. Partial hysterectomy. 5. Bilateral knee arthroplasties in the past. FAMILY HISTORY: Reveals the patient's father in his 70s of a stomach cancer. The patient's mother at 102 of heart disease. The patient has 2 healthy sisters. The patient had 2 brothers and one at age 77 of unknown etiology, but she states he did not care for himself. ALLERGIES: REVEAL THE PATIENT STATES SHE IS ALLERGIC TO TONI INHIBITORS, ASPIRIN, KEFLEX, PENICILLIN, CIPRO, AND POSSIBLY METOPROLOL. SOCIAL HISTORY: Reveals the patient was a former smoker, but now only chews tobacco. She rarely has any alcohol at all and maybe part of a glass of wine. REVIEW OF SYSTEMS: CONSTITUTIONAL: The patient denies fever, chills, or night sweats. The patient does have generalized weakness. RESPIRATORY: The patient complains of shortness of breath and dyspnea on exertion. She does have occasional cough and when she lies down, she gets much more short of breath. CARDIOVASCULAR: The patient denies any chest pain or palpitations. She does have some increased swelling in her lower extremities. GASTROENTEROLOGY: The patient denies nausea, vomiting, diarrhea, or constipation. Denies any abdominal pain. : The patient did have increased urination last night, but has no urgency, frequency, or dysuria. Her increased urination was secondary to her IV Lasix in the ER. EXTREMITIES: The patient did have some lower extremity swelling which she states is a little bit better this morning. WORSHIP LEADER: The patient denies headaches, lightheadedness, dizziness, or focal neurological deficits. PHYSICAL EXAMINATION: GENERAL: This is a well-developed, well-nourished, very pleasant 78-year-old black female, in no apparent distress at this time. VITAL SIGNS: Revealed blood pressure this morning 118/76, pulse 72 to 73, respirations 94% to 95% on room air, and T-max 97.6. HEENT: Reveals normocephalic and nontraumatic cranium. Pupils are equally round and reactive. Extraocular movements are intact. Nose and throat are slightly dry, but clear. NECK: Supple without masses, nodes, or bruits. No jugular venous distention is able to be appreciated. CHEST: Reveals no cough, cold, or congestion at this time. The patient did have rales last night, but has none this morning. Breath sounds are distant. No cough was noted this morning. HEART: Reveals a regular rate and rhythm without gallops or rubs. The patient does have a 3/6 systolic murmur noted. ABDOMEN: Soft, nontender without organomegaly. Normal bowel sounds were noted in all 4 quadrants. No rebound or guarding was noted. : Deferred. EXTREMITIES: Reveal +1 edema this morning. It was noted the patient had +2 edema yesterday. NEUROLOGIC: The patient is oriented to person, place, and time. SKIN: Reveals no significant rashes or changing skin lesions. ASSESSMENT: 1. Mild congestive heart failure, acute exacerbation. 2. Dyspnea on exertion with shortness of breath secondary to above. 3. History of atrial fibrillation. 4. History of cardiomyopathy with ejection fraction of 60%. 5. Coronary artery disease. 6. History of percutaneous transluminal coronary angioplasty with pacemaker placement. 7. Hyperlipidemia. 8. Hypertension. 9. Chronic kidney disease, stage 3. 10. Osteoarthritis. 11. Gastroesophageal reflux disease. 12. Chronic anemia. 13. Mild intermittent asthma. 14. Depression. 15. Generalized weakness. PLAN: 1. We will continue to gradually diurese this patient and watch her renal indices closely. 2. Her creatinine did go from 1.8 to 1.55, which is an improvement. 3. Continue to monitor the patient's heart rate. 4. Continue to monitor the patient's blood pressure closely. 5. Stress ulcer prophylaxis. 6. Decubitus precautions. 7. Continue with slow and gentle mild diuresis. 8. Repeat labs tomorrow morning. Job ID: [id number]
[2018-07-20] MEDS: Warfarin Sodium 5 MG TAB PO SCH (16:52)
[2018-07-20] MEDS ORDERED: Mometasone Furoate 120 PUFF 220 MCG INH SCH (19:15)
[2018-07-20] MEDS: Atorvastatin Calcium 10 MG TAB PO SCH (20:31)
[2018-07-20] MEDS: FLECANIDE PO SCH (20:34)
[2018-07-21] MEDS: Furosemide 20 MG TAB PO SCH ×2 (05:31→14:15)
[2018-07-21 05:53] LABS: INR-International Normal Ratio 1.9; Prothrombin Time 21.4 SEC (12.0-14.7)
[2018-07-21 05:58] LABS: Anion Gap 17 mmol/L (10-20); BUN (Urea Nitrogen) 46 mg/dL (9.8-20.1); Calc. Creatinine Clearance 59 mL/min (70-130); Calcium 9.1 mg/dL (7.8-10.44); Carbon Dioxide 21 mmol/L (23-31); Chloride 103 mmol/L (98-107); Estimated GFR-MDRD 37; Glucose 82 mg/dL (83-110); Potassium 3.6 mmol/L (3.5-5.1); Sodium 137 mmol/L (136-145)
--- NOTE | 2018-07-21 08:09 | PRG ---
DATE OF SERVICE: SUBJECTIVE: Ms. Gusman is a very pleasant 78-year-old black female, patient of Dr. Abarca. She presented to the emergency room yesterday with shortness of breath for the last 3 to 4 days. She was found to be in congestive heart failure. She is admitted to the hospital and had diuresis done. She states she feels much better and is off her oxygen at this time. She states she still gets somewhat short of breath when she goes to the bathroom, which is only 5 feet away. OBJECTIVE: VITAL SIGNS: Today, reveal blood pressure 114/61, pulse 63 to 67, respirations 18, O2 saturation 96% to 98% on room air, and T-max 98.2. GENERAL: This is a well-developed, well-nourished, very pleasant black female. HEENT: Normocephalic and nontraumatic cranium. Pupils are equal, round, reactive to light. Extraocular movements are intact. Nose and throat are slightly dry. NECK: Supple without masses, nodes, or bruits. CHEST: Clear to auscultation. No rales or rhonchi heard this morning. Breath sounds are still different. No cough is noted this morning. HEART: Reveals a regular rate and rhythm without murmurs, gallops, or rubs. No S3 or S4 is noted. A 3/6 systolic murmur is still noted. ABDOMEN: Soft, nontender without organomegaly. Normal bowel sounds are noted in all 4 quadrants. No rebound or guarding is noted. : Deferred. EXTREMITIES: Reveal trace edema today, which is better than the 1+ yesterday and better than the 2+ on admission. NEUROLOGIC: The patient is oriented x3. SKIN: Reveals no rashes or skin lesions. LABORATORY DATA: Laboratories today reveal INR of 1.9. Sodium 137, potassium 3.6, carbon dioxide 21, BUN 46, creatinine 1.65, which is better than the 1.8 on admission. GFR is 37, sugar is 82. BNP is down to 620. ASSESSMENT: 1. Congestive heart failure, continues to improve. 2. Dyspnea on exertion with shortness of breath secondary to above. 3. History of atrial fibrillation. 4. History of cardiomyopathy with ejection fraction of 60%. 5. Coronary artery disease. 6. Percutaneous transluminal coronary angioplasty with pacemaker placement in the past. 7. Hyperlipidemia. 8. Hypertension. 9. Chronic kidney disease, stage 3. 10. Osteoarthritis. 11. Gastroesophageal reflux disease. 12. Chronic anemia. 13. Mild intermittent asthma. 14. Depression. 15. Generalized weakness. PLAN: 1. Continue to gently diurese this patient, watch renal indices. 2. Continue to monitor the patient's heart rate. 3. Continue to monitor the patient's blood pressure closely and adjust medications as needed. 4. Stress ulcer prophylaxis. 5. Decubitus precautions. Job ID: [id number]
[2018-07-21] MEDS: Calcium Carbonate + Vit D 1 TAB PO SCH (08:24)
[2018-07-21] MEDS: Anastrozole 1 MG TAB PO SCH (08:25)
[2018-07-21] MEDS: Famotidine 20 MG TAB PO SCH ×2 (08:25→20:42)
[2018-07-21] MEDS: FLUoxetine HCl 20 MG CAP PO SCH (08:25)
[2018-07-21] MEDS: Torsemide 20 MG TAB PO SCH (08:25)
[2018-07-21] MEDS: Losartan 25 MG TAB PO SCH (08:25)
[2018-07-21] MEDS: FLECANIDE PO SCH ×2 (08:26→20:43)
[2018-07-21] MEDS: Warfarin Sodium 5 MG TAB PO SCH (17:15)
[2018-07-21] MEDS ORDERED: Mometasone Furoate 120 PUFF 220 MCG INH SCH (18:30)
[2018-07-21] MEDS: Atorvastatin Calcium 10 MG TAB PO SCH (20:42)
[2018-07-22] MEDS: Furosemide 20 MG TAB PO SCH (05:19)
[2018-07-22 05:59] LABS: INR-International Normal Ratio 2.2; Prothrombin Time 24.8 SEC (12.0-14.7)
[2018-07-22] MEDS: FLUoxetine HCl 20 MG CAP PO SCH (08:59)
[2018-07-22] MEDS: Anastrozole 1 MG TAB PO SCH (08:59)
[2018-07-22] MEDS: FLECANIDE PO SCH (08:59)
[2018-07-22] MEDS: Losartan 25 MG TAB PO SCH (08:59)
[2018-07-22] MEDS: Famotidine 20 MG TAB PO SCH (08:59)
[2018-07-22] MEDS: Calcium Carbonate + Vit D 1 TAB PO SCH (08:59)
[2018-07-22] MEDS: Torsemide 20 MG TAB PO SCH (09:00)
[2018-07-22 12:33] VITALS: BP 122/73; TEMP 98.1
--- NOTE | 2018-07-23 06:16 | DIS ---
DATE OF ADMISSION: 07/20/2018 DATE OF DISCHARGE: 07/22/2018 HISTORY OF PRESENT ILLNESS: Ms. Gusman is a very pleasant 78-year-old white female, who presented to the emergency room with shortness of breath. She was found to be in congestive heart failure and she is admitted to the hospital for diuresis. She was diuresed pretty aggressively and actually she has done very well. Her shortness of breath was very prominent when she came in. Yesterday, it was much improved today. Today, she has no shortness of breath. She states she is feeling well and is ready to go home. VITAL SIGNS: Today reveal blood pressure 110/55, pulse 94 to 97, respirations 18 to 20, O2 saturation 94% to 97%, T-max 97.8. PHYSICAL EXAMINATION: GENERAL: This is a well-developed, well-nourished, very pleasant 78-year-old black female, in no apparent distress at this time. HEENT: Normocephalic and nontraumatic cranium. Pupils are equal, round, reactive. Extraocular movements are intact. Nose and throat are dry. NECK: Supple without masses, nodes, or bruits. CHEST: Clear to auscultation. No rales, no rhonchi, no wheezes are heard. Breath sounds are distant. No cough is noted this morning. HEART: Reveals a regular rate and rhythm without gallops or rubs. No S3, S4 noted. 3/6 systolic murmur is noted. ABDOMEN: Soft, nontender without organomegaly. Normal bowel sounds are noted. No rebound or guarding is noted. GENITOURINARY: Deferred. EXTREMITIES: Reveal no edema today. When she came in, it was 2+, yesterday it was 1+ and it is gone. NEUROLOGIC: The patient is oriented x3. SKIN: The patient denies any skin rashes or skin lesions. ASSESSMENT: 1. Congestive heart failure, improved. 2. Dyspnea on exertion secondary to shortness of breath, improved. 3. History of atrial fibrillation. 4. History of cardiomyopathy with ejection fraction 60%. 5. Coronary artery disease. 6. Percutaneous transluminal coronary angioplasty with pacemaker placement in the past. 7. Hyperlipidemia. 8. Hypertension. 9. Chronic kidney disease, stage 3. 10. Osteoarthritis. 11. Gastroesophageal reflux disease. 12. Chronic anemia. 13. Mild intermittent asthma. 14. Depression. 15. Generalized weakness. PLAN: 1. The patient is ready for discharge today. She wishes to go home right after lunch. 2. Continue to monitor the patient's heart rate. 3. Continue to monitor the patient's blood pressure closely. 4. The patient is instructed to return to see Dr. Abarca and she has access to these records. DISCHARGE MEDICATIONS: Reveal the patient will be on the followin. Arimidex 1 mg daily. 2. Lipitor 10 mg at bedtime. 3. Prozac 20 mg daily. 4. Ativan 1 mg p.r.n. daily. 5. Cozaar 25 mg daily. 6. Asmanex one puff daily. 7. Fluticasone one inhalation b.i.d. 8. Protonix 40 daily. 9. Flecainide 100 mg b.i.d. 10. Torsemide 40 mg daily. 11. Coumadin as directed. 12. The patient will not be on Lasix when she goes home. The patient is doing well and is ready for discharge. TIME SPENT: We spent more than 40 minutes discharging this patient explaining everything to her. Job ID: [id number]
== END 2018-07-22 13:10 | disposition home or self-care (01) | DRG 291 ==
LOC: NAV ERS 21:57 → NAV ACUTE 07-20 00:43
PROVIDERS: ADMIT Family Medicine; ATTEND Family Medicine
DX: I13.0 Hypertensive heart and chronic kidney disease with heart failure and stage 1 through stage 4 chronic kidney disease, or unspecified chronic kidney disease (principal); I50.33 Acute on chronic diastolic (congestive) heart failure; N18.3 Chronic kidney disease, stage 3 (moderate); I42.9 Cardiomyopathy, unspecified; I25.10 Atherosclerotic heart disease of native coronary artery without angina pectoris; E78.5 Hyperlipidemia, unspecified; M19.90 Unspecified osteoarthritis, unspecified site; K21.9 Gastro-esophageal reflux disease without esophagitis; D64.9 Anemia, unspecified; F32.9 Major depressive disorder, single episode, unspecified; J45.30 Mild persistent asthma, uncomplicated; Z96.653 Presence of artificial knee joint, bilateral; R53.1 Weakness; Z86.79 Personal history of other diseases of the circulatory system; Z95.0 Presence of cardiac pacemaker; Z85.3 Personal history of malignant neoplasm of breast; Z90.711 Acquired absence of uterus with remaining cervical stump; Z88.0 Allergy status to penicillin; Z88.1 Allergy status to other antibiotic agents; Z88.5 Allergy status to narcotic agent; Z87.891 Personal history of nicotine dependence
CPT/HCPCS: 36415; 71045; 80048; 80053; 83880; 85025; 85610; 93005; 96374; J1940

== ENCOUNTER 2018-07-25 20:43 | Emergency (ER) | payer MEDICARE ==
[2018-07-25] MEDS ORDERED: Ondansetron ODT 4 MG TAB ONE (21:11)
[2018-07-25 21:27] LABS: Bilirubin Negative (Negative); Blood, Urine Negative (Negative); Clarity Clear (Clear); Glucose, Urine (Dipstick) Negative (Negative); Leukocyte Negative (Negative); Nitrite Negative (Negative); Protein, Urine (Dipstick) 100 mg/dL (Neg-Trace); Specific Gravity, Urine 1.015 (1.005-1.030)
[2018-07-25 21:33] LABS: Bacteria/HPF None Seen HPF (None Seen); Hyaline Casts/LPF 0-3 HYALINE CAST LPF (0-3 Hyaline); RBC/HPF None Seen HPF (0-3); Renal Epithelial 0-3 HPF (0-3); Squamous Epithelial 0-3 HPF (0-3); WBC/HPF None Seen HPF (0-3)
[2018-07-25 21:38] LABS: INR-International Normal Ratio 3.2; Prothrombin Time 32.5 SEC (12.0-14.7)
[2018-07-25 21:40] LABS: ALT (SGPT) 40 U/L (8-55); AST (SGOT) 57 U/L (5-34); Albumin 3.7 g/dL (3.4-4.8); Alkaline Phosphatase 109 U/L (40-150); Anion Gap 20 mmol/L (10-20); BUN (Urea Nitrogen) 39 mg/dL (9.8-20.1); Bilirubin, Total 0.9 mg/dL (0.2-1.2); Calc. Creatinine Clearance 0 mL/min (70-130); Calcium 9.5 mg/dL (7.8-10.44); Carbon Dioxide 23 mmol/L (23-31); Chloride 99 mmol/L (98-107); Estimated GFR-MDRD 32; Globulin 3.1 g/dL (2.4-3.5); Glucose 107 mg/dL (83-110); Lipase 52 U/L (8-78); Protein, Total 6.8 g/dL (6.0-8.3); Sodium 138 mmol/L (136-145)
[2018-07-25 21:57] LABS: Anisocytosis SLIGHT = 6-15 cells (100X) (0-5/hpf); Eosinophils 2 % (0-10); Hypochromia SLIGHT = 6-15 cells (100X) (0-5/hpf); Lymphocytes 17 % (21-51); MDiff Complete? YES; Mean Corpuscular HGB CONC 29.5 g/dL (32.0-36.0); Mean Corpuscular Volume 84.7 fL (78.0-98.0); Mean Platelet Volume 6.8 fL (7.4-10.4); Monocytes 4 % (0-10); Neutrophil 76 % (42-75); Platelet Count 235 thou/uL (130-400); Polychromasia SLIGHT = 2-3 cells (100X) (0-2/hpf); RBC Distribution Width 15.3 % (11.5-14.5); Red Blood Cell (RBC) Count 4.39 mill/uL (4.20-5.40); White Blood Cell (WBC) Count 4.8 thou/uL (4.8-10.8)
== END 2018-07-25 22:40 | disposition home or self-care (01) ==
LOC: NAV ERS 20:43
DX: R10.13 Epigastric pain (principal); I11.0 Hypertensive heart disease with heart failure; I50.9 Heart failure, unspecified; F17.220 Nicotine dependence, chewing tobacco, uncomplicated; E78.5 Hyperlipidemia, unspecified; N28.9 Disorder of kidney and ureter, unspecified; Z79.899 Other long term (current) drug therapy
CPT/HCPCS: 80053; 81003; 81015; 83690; 85025; 85610; 93005; Q0162

== ENCOUNTER 2018-08-23 15:40 | Inpatient (IN) | payer MEDICARE ==
[2018-08-23] MEDS: Ondansetron ODT 4 MG TAB PO PRN (17:48)
[2018-08-23] MEDS: Mometasone Furoate 120 PUFF 220 MCG INH SCH (19:19)
[2018-08-23] MEDS ORDERED: Furosemide 80 MG TAB PO SCH ×2 (20:00→21:00)
[2018-08-23] MEDS ORDERED: Warfarin Sodium 5 MG TAB PO SCH (20:00)
[2018-08-23] MEDS: Pravastatin Sodium 20 MG TAB PO SCH (20:01)
[2018-08-23] MEDS ORDERED: Pravastatin Sodium 40 MG TAB PO SCH (21:00)
--- NOTE | 2018-08-24 01:56 | HP ---
HISTORY OF PRESENT ILLNESS: Ms. Gusman is a 78-year-old black female, who presented to the emergency room on 08/04/2018, after becoming significantly short of breath. She was admitted with diagnoses of: 1. Ysnjx-fs-orohnye diastolic congestive heart failure, stage C. 2. Mbmvo-qp-omzvute kidney failure, stage 3. 3. Hypokalemia. 4. Chronic constipation and hyponatremia. She was admitted to the hospital and they tried to diurese her, but she kept dropping her blood pressure. They did eventually move her onto a dobutamine drip and subsequently changed it to milrinone drip. The patient started making good urine output and her cardiorenal syndrome has improved. While in the hospital, she was followed by Cardiology, which was Dr. Phelps and Nephrology, but I do not have the rolling attendant's name. The patient eventually was stabilized and is now transferred to [facility] for physical therapy and occupational therapy because she is so weak. She comes over to the hospital at this time and states she has nausea and vomiting from her ride over. PAST MEDICAL HISTORY: Significant for: 1. Chronic diastolic congestive heart failure. 2. Atrial fibrillation, on warfarin. 3. Cardiomyopathy. 4. Coronary artery disease. 5. Percutaneous transluminal angioplasty with pacemaker placement in the past. 6. Hyperlipidemia. 7. Hypertension. 8. Chronic kidney disease, stage 3. 9. GERD. 10. Osteoarthritis. 11. Chronic anemia. 12. Mild intermittent asthma. 13. Depression. 14. History of breast cancer. 15. Morbid obesity with a BMI of 46. 16. Severe mitral valve regurgitation. 17. Severe tricuspid regurgitation. 18. Normocytic normochromic anemia. PAST SURGICAL HISTORY: 1. The patient had a mastectomy on the right. 2. Bilateral knee replacements. 3. Partial hysterectomy. SOCIAL HISTORY: Reveals the patient denies any tobacco use, alcohol use, or illicit drugs. She does live at home and her grandson lives with her. ALLERGIES: REVEALS SHE IS ALLERGIC TO THE FOLLOWIN. TONI INHIBITORS. 2. METOPROLOL. 3. PENICILLIN. 4. CIPRO. 5. ASPIRIN, WHICH IS NOT AN ALLERGY, BUT IT UPSETS HER STOMACH. MEDICATIONS: Present medications that she was sent over on the hospital with include the followin. Anastrozole 1 mg daily. 2. Calcium carbonate with vitamin D3 one daily. 3. Fluoxetine 20 mg each morning. 4. Fluticasone furoate (Arnuity Ellipta) one inhalation twice a day. 5. Furosemide 80 mg twice a day. 6. Lorazepam 1 mg daily p.r.n. anxiety. 7. Omeprazole 40 mg each morning. 8. Pravachol 40 mg each evening. 9. Coumadin 5 mg daily. REVIEW OF SYSTEMS: CONSTITUTIONAL: Reveal the patient states she feels a little nauseated now, but she denies any fever or chills. HEENT: She denies any change in her vision or hearing. RESPIRATORY: She denies any upper respiratory problems including cough, cold, congestion, or wheezing. CARDIAC: She denies any heart problems including palpitations or chest pain, dyspnea on exertion, or significant edema in her feet. GI: She denies nausea, vomiting, constipation, diarrhea, bloody or black tarry stools. GENITOURINARY: She denies dysuria, frequency, urgency, or pyuria. MUSCULOSKELETAL: She denies any significant pain in her ribs. She just has generalized weakness. NEUROLOGIC: The patient is oriented to person, place, time, and situation at this time. PHYSICAL EXAMINATION: VITAL SIGNS: Reveal blood pressure on arrival to [facility] is 135/54, pulse 67, respirations 16, O2 saturation 98% on room air, and temperature is 97.0. GENERAL: This is a well-developed, well-nourished, morbidly obese black female, in no apparent distress at this time. HEENT: Reveals normocephalic and nontraumatic cranium. Pupils are equally round and reactive. Extraocular movements are intact. Nose and throat are dry, but clear. NECK: Supple without masses, nodes, or bruits. No jugular venous distention is noted. LUNGS: Clear to auscultation. No rales, rhonchi, wheezes, or cough is heard. HEART: Reveals a regular rate and rhythm without murmurs, gallops, or rubs. ABDOMEN: Soft and nontender without organomegaly. Normal bowel sounds are noted. No rebound or guarding is noted. Bowel sounds are heard in all 4 quadrants. : Deferred. EXTREMITIES: Reveal no clubbing or cyanosis, with 1+ edema at this time. NEUROLOGIC: The patient has a nonfocal exam, and she is oriented x3. ASSESSMENT: This is a well-developed, well-nourished 78-year-old black female, transferred to [facility] because of extreme weakness. Her primary diagnoses are: 1. Generalized weakness and debility. 2. Mccor-bd-hbmhkwb diastolic congestive heart failure, stage C. 3. Ppzwx-jb-rjqqpzt kidney failure, stage 3. 4. Hypokalemia. 5. Chronic constipation. 6. Hyponatremia. 7. Paroxysmal atrial fibrillation. 8. Chronic anticoagulation with warfarin. 9. Severe mitral regurgitation. 10. Severe tricuspid regurgitation. 11. Hyperlipidemia. 12. Coronary artery disease. 13. 14. Normocytic normochromic anemia. 15. Severe physical deconditioning and weakness. PLAN: 1. The patient will continue with same medications that she was on at [facility]. 2. We will do a consult for Physical Therapy and Occupational Therapy. 3. We will check her electrolytes every morning. 4. Stress ulcer prophylaxis. 5. Decubitus precautions. 6. DVT prophylaxis. 7. Physical Therapy and Occupational Therapy. Job ID: [id number]
[2018-08-24 05:17] LABS: INR-International Normal Ratio 2.1; Prothrombin Time 23.2 SEC (12.0-14.7)
[2018-08-24 05:24] LABS: Anion Gap 13 mmol/L (10-20); BUN (Urea Nitrogen) 57 mg/dL (9.8-20.1); Calc. Creatinine Clearance 54 mL/min (70-130); Calcium 8.7 mg/dL (7.8-10.44); Carbon Dioxide 32 mmol/L (23-31); Chloride 91 mmol/L (98-107); Estimated GFR-MDRD 31; Glucose 115 mg/dL (83-110); Potassium 3.4 mmol/L (3.5-5.1); Sodium 133 mmol/L (136-145)
--- NOTE | 2018-08-24 08:30 | PRG ---
DATE OF SERVICE: 08/24/2018 The patient is a well-developed, well-nourished, very pleasant 78-year-old black female, who presented to the emergency room on 08/04/2018. She was significantly short of breath and was found to have acute diastolic congestive heart failure stage C, and acute chronic kidney failure stage 3. She was also noted to be hypokalemic with chronic constipation, hyponatremia. The patient was admitted to the hospital and diuresed. Unfortunately, she had difficulty keeping her blood pressure down and they eventually started her on dobutamine drip and then changed it to milrinone drip. The patient made good urinary output. She was eventually stabilized and was transferred to [facility] for physical therapy and occupational therapy. SUBJECTIVE: The patient states she is doing well today and is breathing well and has no complaints of chest pain etc. She has no shortness of breath. OBJECTIVE: VITAL SIGNS: Today reveal blood pressure 109/65, pulse 62, respirations 16, O2 saturation 99% on room air, and T-max 98.0. GENERAL: This is a well-developed, well-nourished, morbidly obese black female, in no apparent distress at this time. HEENT: Normocephalic and nontraumatic cranium. Pupils are equally round and reactive. Extraocular movements are intact. Nose and throat are dry. NECK: Supple without masses, nodes, or bruits. CHEST: Clear to auscultation. No rales, rhonchi, wheezes, or cough is heard. HEART: Reveals a regular rate and rhythm without murmurs, gallops, or rubs. ABDOMEN: Soft and nontender without organomegaly. Normal bowel sounds are noted. No rebound or guarding is noted. : Deferred. EXTREMITIES: Reveal no clubbing, cyanosis, but 1+ edema still noted. NEUROLOGIC: The patient is nonfocal, and she is oriented x3. ASSESSMENT: 1. Acute on chronic diastolic congestive heart failure, stage C. 2. Acute on chronic renal failure stage 3. 3. Hypokalemia. 4. Chronic constipation. 5. Hyponatremia. 6. Paroxysmal atrial fibrillation. 7. Chronic anticoagulation with Coumadin. 8. Severe mitral regurgitation. 9. Severe tricuspid regurgitation. 10. Hyperlipidemia. 11. Coronary artery disease. 12. Constipation. 13. Normocytic and normochromic anemia. 14. Severe physical deconditioning and weakness. PLAN: 1. The patient will have chem-7 each morning. 2. The patient will be continued on the same medications she was transferred over from [place]. 3. Stress ulcer prophylaxis. 4. Decubitus precautions. 5. Continue physical therapy and occupational therapy. 6. Check electrolytes daily. Job ID: [id number]
[2018-08-24] MEDS: FLUoxetine HCl 20 MG CAP PO SCH (09:10)
[2018-08-24] MEDS: Calcium Carbonate + Vit D 1 TAB PO SCH (09:10)
[2018-08-24] MEDS: Anastrozole 1 MG TAB PO SCH (09:11)
[2018-08-24] MEDS: Furosemide 80 MG TAB PO SCH ×2 (09:12→14:24)
[2018-08-24] MEDS: Mometasone Furoate 120 PUFF 220 MCG INH SCH (17:23)
[2018-08-24] MEDS: Warfarin Sodium 5 MG TAB PO SCH (17:23)
[2018-08-24] MEDS ORDERED: Warfarin Sodium 5 MG TAB PO SCH (20:00)
[2018-08-24] MEDS: Ondansetron ODT 4 MG TAB PO PRN (21:16)
[2018-08-24] MEDS: Lorazepam 0.5 MG TAB PO PRN (21:25)
[2018-08-24] MEDS: Pravastatin Sodium 20 MG TAB PO SCH (21:28)
[2018-08-25 05:20] LABS: INR-International Normal Ratio 2.3; Prothrombin Time 25.1 SEC (12.0-14.7)
[2018-08-25 05:27] LABS: Anion Gap 15 mmol/L (10-20); BUN (Urea Nitrogen) 56 mg/dL (9.8-20.1); Calc. Creatinine Clearance 50 mL/min (70-130); Calcium 9.2 mg/dL (7.8-10.44); Carbon Dioxide 32 mmol/L (23-31); Chloride 92 mmol/L (98-107); Estimated GFR-MDRD 28; Glucose 78 mg/dL (83-110); Potassium 4.3 mmol/L (3.5-5.1); Sodium 135 mmol/L (136-145)
--- NOTE | 2018-08-25 07:57 | PRG ---
DATE OF SERVICE: 08/25/2018 HISTORY: Ms. Gusman is a very pleasant 78-year-old black female presented to the emergency room on 08/04/2018. She was short of breath and found to be in acute diastolic congestive heart failure, acute on chronic renal failure and hypoxemic. She is also noted to be hypokalemic with chronic constipation and hyponatremia. The patient was admitted to the hospital and had to be diuresed. She had difficulty keeping her blood pressure up and had to be started on dobutamine drip. This was then changed to a milrinone drip. Since then, the patient made very good progress. She eventually stabilized and transferred to [facility]. She is here for physical therapy and occupational therapy. SUBJECTIVE: The patient states she is doing well, and not having any problems, she is not short of breath, and she had a great day yesterday. She was visited by Physical Therapy and Occupational Therapy, that evaluated her. OBJECTIVE: VITAL SIGNS: Today, reveal blood pressure 110/61, pulse 60, respirations 20, with O2 saturation 98% to 99% on room air. T-max 98.1. GENERAL: This is a well-developed, well-nourished morbidly obese back female, in no apparent respiratory distress at this time. HEENT: Reveals normocephalic and nontraumatic cranium. Pupils are equal, round, reactive. Extraocular movements are intact. Nose and throat are moist. NECK: Supple without masses nodes or bruits. CHEST: Clear to auscultation. No rales, rhonchi, wheezes, or cough is heard. HEART: Reveals a regular rate and rhythm without murmurs, gallops, or rubs. ABDOMEN: Soft, nontender without organomegaly. Normal bowel sounds are noted in all 4 quadrants. : Deferred. EXTREMITIES: Reveal no clubbing or cyanosis with 1+ edema. NEUROLOGIC: The patient is nonfocal, and she is oriented x3. ASSESSMENT: 1. Acute on chronic diastolic congestive heart failure, stage C. 2. Acute on chronic renal failure stage 3. 3. Hyperkalemia. 4. Chronic constipation. 5. Hyponatremia. 6. Paroxysmal atrial fibrillation. 7. Chronic anticoagulation with Coumadin. 8. Severe mitral regurgitation. 9. Severe tricuspid regurgitation. 10. Hyperlipidemia. 11. Coronary artery disease. 12. Constipation. 13. Normocytic normochromic anemia. 14. Severe physical deconditioning and weakness. PLAN: 1. The patient's Lasix is 80 mg b.i.d. We will decrease that to 80 mg once a day since the patient's creatinine is now above 2. 2. Continue otherwise the same medications that she was on since her transfer from [place]. 3. Stress ulcer prophylaxis. 4. Decubitus precautions. 5. Check electrolytes daily. 6. Continue physical therapy and occupational therapy. 7. Dr. Santana, is back on-call for this patient starting tonight at 9:00 p.m. Job ID: [id number]
[2018-08-25] MEDS: Furosemide 80 MG TAB PO SCH ×2 (08:54→14:06)
[2018-08-25] MEDS: Anastrozole 1 MG TAB PO SCH (08:54)
[2018-08-25] MEDS: Calcium Carbonate + Vit D 1 TAB PO SCH (08:54)
[2018-08-25] MEDS: FLUoxetine HCl 20 MG CAP PO SCH (08:54)
[2018-08-25] MEDS: Ondansetron ODT 4 MG TAB PO PRN (13:14)
[2018-08-25] MEDS: Warfarin Sodium 5 MG TAB PO SCH (17:05)
[2018-08-25] MEDS: Mometasone Furoate 120 PUFF 220 MCG INH SCH (18:16)
[2018-08-25] MEDS: Pravastatin Sodium 20 MG TAB PO SCH (21:15)
[2018-08-25] MEDS: Lorazepam 0.5 MG TAB PO PRN (23:26)
[2018-08-26 05:22] LABS: INR-International Normal Ratio 2.7; Prothrombin Time 28.6 SEC (12.0-14.7)
[2018-08-26 05:28] LABS: Anion Gap 12 mmol/L (10-20); BUN (Urea Nitrogen) 52 mg/dL (9.8-20.1); Calc. Creatinine Clearance 54 mL/min (70-130); Calcium 8.6 mg/dL (7.8-10.44); Carbon Dioxide 32 mmol/L (23-31); Chloride 92 mmol/L (98-107); Estimated GFR-MDRD 31; Glucose 74 mg/dL (83-110); Potassium 3.4 mmol/L (3.5-5.1); Sodium 133 mmol/L (136-145)
[2018-08-26] MEDS: FLUoxetine HCl 20 MG CAP PO SCH (08:34)
[2018-08-26] MEDS: Furosemide 80 MG TAB PO SCH (08:34)
[2018-08-26] MEDS: Calcium Carbonate + Vit D 1 TAB PO SCH (08:34)
[2018-08-26] MEDS: Anastrozole 1 MG TAB PO SCH (08:34)
[2018-08-26] MEDS ORDERED: Potassium Chloride 20 MEQ TAB PO SCH (13:00)
--- NOTE | 2018-08-26 13:23 | PRG ---
DATE OF SERVICE: 08/26/2018 SUBJECTIVE: Ms. Gusman is up in her wheelchair and just finished her lunch. She denies any concerns or questions. She apparently is tolerating therapy. She denies any PND or orthopnea. She denies any chest pain or shortness of breath. No family at bedside. OBJECTIVE: VITAL SIGNS: She is afebrile. Heart rate 60, respirations 20, oxygen saturation 97% on room air, and blood pressure 116/57. CARDIOVASCULAR SYSTEM: S1 and S2 plus. 2/6 systolic murmur heard. RESPIRATORY: Normal vesicular breath sounds in all lung altamirano with decreased air entry in the bases. ABDOMEN: Soft, obese, and nontender. EXTREMITIES: Without cyanosis or clubbing. Trace edema. CENTRAL NERVOUS SYSTEM: A and O x3. Improving deconditioning. LABORATORY VALUES: Her INR is 2.7, sodium 133, potassium is still low at 3.4, BUN and creatinine are 52 and 1.92. IMPRESSION: 1. Improving acute on chronic diastolic congestive heart failure. 2. Chronic kidney disease, stage 3. 3. Hypokalemia. 4. Hyponatremia. 5. History of breast cancer. 6. Atrial fibrillation, now in sinus rhythm. 7. Coronary artery disease and deconditioning. PLAN: 1. Continue current medications. 2. Heart healthy diet. 3. Monitor heart rate and rhythm. 4. Monitor for any decompensation of heart failure. 5. Physical therapy. 6. Nutritional support. 7. Routine laboratory values. 8. Discussed with the patient in detail. All questions answered. Job ID: [id number]
[2018-08-26] MEDS: Warfarin Sodium 5 MG TAB PO SCH (17:14)
[2018-08-26] MEDS: Mometasone Furoate 120 PUFF 220 MCG INH SCH (19:13)
[2018-08-26] MEDS: Lorazepam 0.5 MG TAB PO PRN (20:52)
[2018-08-26] MEDS: Pravastatin Sodium 20 MG TAB PO SCH (20:52)
[2018-08-27 05:26] LABS: INR-International Normal Ratio 2.5; Prothrombin Time 26.9 SEC (12.0-14.7)
[2018-08-27 05:34] LABS: Anion Gap 14 mmol/L (10-20); BUN (Urea Nitrogen) 49 mg/dL (9.8-20.1); Calc. Creatinine Clearance 56 mL/min (70-130); Calcium 8.7 mg/dL (7.8-10.44); Carbon Dioxide 30 mmol/L (23-31); Chloride 91 mmol/L (98-107); Estimated GFR-MDRD 32; Glucose 82 mg/dL (83-110); Potassium 3.7 mmol/L (3.5-5.1); Sodium 131 mmol/L (136-145)
[2018-08-27] MEDS: FLUoxetine HCl 20 MG CAP PO SCH (08:52)
[2018-08-27] MEDS: Anastrozole 1 MG TAB PO SCH (08:52)
[2018-08-27] MEDS: Calcium Carbonate + Vit D 1 TAB PO SCH (08:52)
[2018-08-27] MEDS: Potassium Chloride 20 MEQ TAB PO SCH (08:52)
[2018-08-27] MEDS: Furosemide 80 MG TAB PO SCH (08:53)
--- NOTE | 2018-08-27 14:08 | PRG ---
DATE OF SERVICE: 08/27/2018 SUBJECTIVE: Ms. Gusman is doing well. Denies any complaints. No family at bedside, improving with therapy. Denies any chest pain or shortness of breath. Leg swelling is slowly improving. OBJECTIVE: VITAL SIGNS: She is afebrile, heart rate is 68, respirations 20, oxygen saturation 99% on room air, and blood pressure 105/58. CARDIOVASCULAR SYSTEM: S1 and S2 plus. RESPIRATORY SYSTEM: Normal vesicular breath sounds. ABDOMEN: Soft and nontender. Bowel sounds heard in all quadrants. EXTREMITIES: Without cyanosis or clubbing. Trace edema. Peripheral pulses are palpable. CENTRAL NERVOUS SYSTEM: AAO x3. Cranial nerves 2 through 12 intact. Improving deconditioning. LABORATORY VALUES: INR is 2.5 today. Sodium is slightly low at 131. Potassium is back to normal at 3.7, BUN and creatinine is 49 and 1.84. IMPRESSION: 1. Resolving acute on chronic diastolic congestive heart failure. 2. Hyponatremia, likely due to diuresis. 3. Hypokalemia, resolved. 4. Chronic kidney disease, stage 3. 5. History of breast cancer. 6. Paroxysmal atrial fibrillation, now in sinus rhythm. 7. Coronary artery disease. 8. Deconditioning. PLAN: 1. Continue current medications. 2. Heart-healthy diet. 3. Monitor heart rate and rhythm. 4. Monitor electrolytes. 5. Continue physical therapy. 6. DVT and stress ulcer prophylaxis. 7. Decubitus precautions. 8. Routine laboratory values. 9. Discussed with the patient in detail. All questions answered. 10. No family at bedside. Job ID: [id number]
[2018-08-27] MEDS: Warfarin Sodium 5 MG TAB PO SCH (17:33)
[2018-08-27] MEDS: Mometasone Furoate 120 PUFF 220 MCG INH SCH (18:58)
[2018-08-27] MEDS: Docusate 100 MG CAP PO SCH (20:54)
[2018-08-27] MEDS: Lorazepam 0.5 MG TAB PO PRN (20:54)
[2018-08-27] MEDS: Pravastatin Sodium 20 MG TAB PO SCH (20:54)
[2018-08-28 05:50] LABS: Potassium 4.5 mmol/L (3.5-5.1)
[2018-08-28 05:51] LABS: INR-International Normal Ratio 2.2; Prothrombin Time 24.6 SEC (12.0-14.7)
[2018-08-28] MEDS: Calcium Carbonate + Vit D 1 TAB PO SCH (08:01)
[2018-08-28] MEDS: Furosemide 80 MG TAB PO SCH (08:01)
[2018-08-28] MEDS: Anastrozole 1 MG TAB PO SCH (08:01)
[2018-08-28] MEDS: FLUoxetine HCl 20 MG CAP PO SCH (08:01)
[2018-08-28] MEDS: Docusate 100 MG CAP PO SCH ×2 (08:01→20:41)
[2018-08-28] MEDS: Potassium Chloride 20 MEQ TAB PO SCH (08:01)
[2018-08-28] MEDS: Calcium Carbonate 500 MG ChewTAB PO PRN ×2 (15:57→15:58)
[2018-08-28] MEDS: Warfarin Sodium 5 MG TAB PO SCH (17:27)
[2018-08-28] MEDS: Mometasone Furoate 120 PUFF 220 MCG INH SCH (18:34)
[2018-08-28] MEDS: Pravastatin Sodium 20 MG TAB PO SCH (20:42)
[2018-08-28] MEDS: Lorazepam 0.5 MG TAB PO PRN (20:42)
[2018-08-29 05:31] LABS: INR-International Normal Ratio 2.1; Prothrombin Time 23.3 SEC (12.0-14.7)
[2018-08-29 05:37] LABS: Potassium 4.1 mmol/L (3.5-5.1)
[2018-08-29] MEDS: FLUoxetine HCl 20 MG CAP PO SCH (08:23)
[2018-08-29] MEDS: Furosemide 80 MG TAB PO SCH (08:23)
[2018-08-29] MEDS: Calcium Carbonate + Vit D 1 TAB PO SCH (08:23)
[2018-08-29] MEDS: Docusate 100 MG CAP PO SCH ×2 (08:23→20:42)
[2018-08-29] MEDS: Anastrozole 1 MG TAB PO SCH (08:23)
[2018-08-29] MEDS: Potassium Chloride 20 MEQ TAB PO SCH (08:23)
--- NOTE | 2018-08-29 13:59 | PRG ---
DATE OF SERVICE: 08/29/2018 SUBJECTIVE: Ms. Gusman is up in her wheelchair, denies any complaints. She states that the pantoprazole is helping, but she ate some tomatoes and had some heartburn and that is why she wanted the Tums. She denies any melena or hematochezia. She is tolerating her therapy. Denies any chest pain or shortness of breath. OBJECTIVE: VITAL SIGNS: She is afebrile. Heart rate 67, respirations 20, oxygen saturation 95% on room air, blood pressure 115/55. CARDIOVASCULAR: S1, S2 plus. Rate and rhythm regular. RESPIRATORY: Normal vesicular breath sounds in all lung altamirano. ABDOMEN: Soft, nontender. Bowel sounds heard in all quadrants. Obese. EXTREMITIES: Without cyanosis or clubbing. 2+ edema, pitting. CENTRAL NERVOUS SYSTEM: AAO x3. Cranial nerves 2 through 12 intact. LABORATORY VALUES: Potassium is 4.1, much improved. Her INR is 2.1. IMPRESSION: 1. Chronic diastolic congestive heart failure. 2. Lower extremity venous insufficiency, improving. 3. Atrial fibrillation. 4. Coronary artery disease. 5. Hypertension. 6. Dyslipidemia. 7. Chronic kidney disease stage 3. PLAN: 1. Discontinue daily PT, INR and potassium levels. 2. Continue heart healthy diet. 3. Monitor heart rate and rhythm. 4. Monitor daily weights. 5. Physical therapy. 6. Monitor for any decompensation of heart disease. 7. Routine laboratory values. 8. Discussed with the patient and nursing in detail. All questions answered. Job ID: [id number]
[2018-08-29] MEDS ORDERED: Acetaminophen 500 MG TAB PO PRN (16:49)
[2018-08-29] MEDS: Mometasone Furoate 120 PUFF 220 MCG INH SCH (17:14)
[2018-08-29] MEDS: Warfarin Sodium 5 MG TAB PO SCH (17:14)
[2018-08-29] MEDS: Pravastatin Sodium 20 MG TAB PO SCH (20:42)
[2018-08-29] MEDS: Lorazepam 0.5 MG TAB PO PRN (20:43)
[2018-08-30] MEDS: Potassium Chloride 20 MEQ TAB PO SCH (08:57)
[2018-08-30] MEDS: FLUoxetine HCl 20 MG CAP PO SCH (09:38)
[2018-08-30] MEDS: Docusate 100 MG CAP PO SCH ×2 (09:38→20:41)
[2018-08-30] MEDS: Anastrozole 1 MG TAB PO SCH (09:38)
[2018-08-30] MEDS: Furosemide 80 MG TAB PO SCH (09:38)
[2018-08-30] MEDS: Calcium Carbonate + Vit D 1 TAB PO SCH (09:38)
--- NOTE | 2018-08-30 12:36 | PRG ---
DATE OF SERVICE: 08/30/[address] Cary Santana. SUBJECTIVE: The patient feels well, is working with physical therapy today in the rehab lab. OBJECTIVE: VITAL SIGNS: Showed to have blood pressure 102/51, temperature is 98, pulse 64, respirations 18, O2 saturations 99% on room air. LUNGS: Clear. CARDIAC: Regular rhythm. No gallops or murmurs. ABDOMEN: Soft and nontender and obese. SKIN/EXTREMITIES: Showed 2+ edema. LABORATORY DATA: Laboratories yesterday showed PT is 23.3 and INR 2.1. Potassium 4.1. ASSESSMENT: 1. Slowly improving chronic diastolic congestive heart failure. 2. Atrial fibrillation with rate controlled with adequate anticoagulation. 3. Coronary artery disease, asymptomatic. 4. Hypertension, controlled to goal. 5. Chronic kidney disease stage 3, stable. PLAN: 1. Continue physical therapy. 2. Continue anticoagulation and rate control of atrial fibrillation. 3. Continue to monitor renal function. Job ID: [id number]
[2018-08-30] MEDS: Warfarin Sodium 5 MG TAB PO SCH (17:43)
[2018-08-30] MEDS: Mometasone Furoate 120 PUFF 220 MCG INH SCH (18:54)
[2018-08-30] MEDS: Pravastatin Sodium 20 MG TAB PO SCH (20:41)
[2018-08-30] MEDS: Lorazepam 0.5 MG TAB PO PRN (20:41)
[2018-08-31 05:33] LABS: Prothrombin Time 22.5 SEC (12.0-14.7)
[2018-08-31 07:33] LABS: Anion Gap 13 mmol/L (10-20); BUN (Urea Nitrogen) 37 mg/dL (9.8-20.1); Calc. Creatinine Clearance 83 mL/min (70-130); Calcium 8.3 mg/dL (7.8-10.44); Carbon Dioxide 30 mmol/L (23-31); Chloride 99 mmol/L (98-107); Estimated GFR-MDRD 51; Glucose 77 mg/dL (83-110); Potassium 4.1 mmol/L (3.5-5.1); Sodium 138 mmol/L (136-145)
--- NOTE | 2018-08-31 08:01 | PRG ---
DATE OF SERVICE: 08/31/2018 SUBJECTIVE: The patient lying in bed, resting well. States she has no dyspnea at rest. No nausea, vomiting, and good appetite. OBJECTIVE: VITAL SIGNS: Temperature is 98.4, pulse 69, respirations 18, O2 saturations 100% on room air. Most recent laboratory showed a PT 22.5, INR 2.0, and other laboratories stable with most recent creatinine 1.84. Tolerating gentle diuresis. LUNGS: Show decreased breath sounds at bases. CARDIAC: Shows irregularly irregular rhythm. SKIN/EXTREMITIES: Still show persistent 2+ edema. ASSESSMENT: 1. Slowly improving diastolic congestive heart failure, on gentle diuresis. 2. Stable atrial fibrillation with rate control and anticoagulation. 3. Asymptomatic coronary artery disease. 4. Hypertension, controlled to goal. 5. Chronic kidney disease, stable with diuresis. PLAN: 1. Continue PT, OT. 2. Repeat basic metabolic profile in the a.m. 3. Continue rate control and anticoagulation of atrial fibrillation. 4. Continue gentle diuresis of diastolic heart failure. Job ID: [id number]
[2018-08-31] MEDS: Docusate 100 MG CAP PO SCH ×2 (08:16→21:11)
[2018-08-31] MEDS: Calcium Carbonate + Vit D 1 TAB PO SCH (08:16)
[2018-08-31] MEDS: Potassium Chloride 20 MEQ TAB PO SCH (08:16)
[2018-08-31] MEDS: FLUoxetine HCl 20 MG CAP PO SCH (08:17)
[2018-08-31] MEDS: Anastrozole 1 MG TAB PO SCH (08:17)
[2018-08-31] MEDS: Furosemide 80 MG TAB PO SCH (08:17)
[2018-08-31] MEDS: Warfarin Sodium 5 MG TAB PO SCH (17:00)
[2018-08-31] MEDS: Mometasone Furoate 120 PUFF 220 MCG INH SCH (18:10)
[2018-08-31] MEDS: Pravastatin Sodium 20 MG TAB PO SCH (21:11)
[2018-08-31] MEDS: Lorazepam 0.5 MG TAB PO PRN (21:12)
[2018-09-01 05:42] LABS: INR-International Normal Ratio 1.7; Prothrombin Time 20.3 SEC (12.0-14.7)
[2018-09-01] MEDS: Potassium Chloride 20 MEQ TAB PO SCH (08:10)
[2018-09-01] MEDS: Anastrozole 1 MG TAB PO SCH (08:10)
[2018-09-01] MEDS: FLUoxetine HCl 20 MG CAP PO SCH (08:11)
[2018-09-01] MEDS: Furosemide 80 MG TAB PO SCH (08:11)
[2018-09-01] MEDS: Calcium Carbonate + Vit D 1 TAB PO SCH (08:12)
[2018-09-01] MEDS: Docusate 100 MG CAP PO SCH ×2 (08:12→21:25)
[2018-09-01] MEDS ORDERED: Warfarin Sodium 3 MG TAB PO SCH (17:00)
[2018-09-01] MEDS ORDERED: Warfarin Sodium 5 MG TAB PO SCH (17:45)
[2018-09-01] MEDS: Mometasone Furoate 120 PUFF 220 MCG INH SCH (18:08)
--- NOTE | 2018-09-01 20:59 | PRG ---
DATE OF SERVICE: 09/01/2018 SUBJECTIVE: The patient feels well, visited with family today. She is having no shortness of breath or chest pain, weakness, or lightheadedness. OBJECTIVE: VITAL SIGNS: Temperature 97.3, pulse 69, respirations 20, O2 sats 97% on room air, and blood pressure 133/56. LABORATORY DATA: Chemistries showed PT/INR 1.7, on 5 mg of warfarin daily. Sodium yesterday 138, potassium 4.1, chloride 99, bicarb 30, BUN 37, creatinine 1.24. ASSESSMENT: 1. Improving diastolic heart failure, on gentle diuresis with improving renal function. 2. Stable atrial fibrillation with inadequate anticoagulation. 3. Asymptomatic coronary artery disease. 4. Stable hypertension. 5. Improving chronic kidney disease with diuresis. PLAN: Increase warfarin to 6 mg daily. Continue PT, OT. Continue rate control and anticoagulation of atrial fibrillation with increased dose of warfarin 6 mg daily. Continue gentle diuresis with diastolic heart failure and monitor renal function. Job ID: [id number]
[2018-09-01] MEDS: Lorazepam 0.5 MG TAB PO PRN (21:25)
[2018-09-01] MEDS: Pravastatin Sodium 20 MG TAB PO SCH (21:25)
[2018-09-02 05:35] LABS: INR-International Normal Ratio 1.7; Prothrombin Time 20.2 SEC (12.0-14.7)
[2018-09-02] MEDS: Potassium Chloride 20 MEQ TAB PO SCH (08:20)
[2018-09-02] MEDS: Anastrozole 1 MG TAB PO SCH (08:20)
[2018-09-02] MEDS: Calcium Carbonate + Vit D 1 TAB PO SCH (08:21)
[2018-09-02] MEDS: FLUoxetine HCl 20 MG CAP PO SCH (08:22)
[2018-09-02] MEDS: Docusate 100 MG CAP PO SCH ×2 (08:22→21:11)
[2018-09-02] MEDS: Furosemide 80 MG TAB PO SCH (08:23)
[2018-09-02] MEDS ORDERED: Warfarin Sodium 5 MG TAB PO SCH ×2 (13:00→17:00)
[2018-09-02] MEDS ORDERED: Milk Of Magnesia 30 ML UDCUP PO PRN (13:10)
--- NOTE | 2018-09-02 13:41 | PRG ---
DATE OF SERVICE: 09/02/2018 SUBJECTIVE: Ms. Gusman is doing well, except she really wants to have a little bit more to drink. She is also constipated and normally milk of magnesia works. OBJECTIVE: VITAL SIGNS: She is afebrile. Heart rate 69, respirations 20, oxygen saturation 97% on room air, blood pressure 129/59. CARDIOVASCULAR: S1 and S2 plus. RESPIRATORY: Normal vesicular breath sounds. ABDOMEN: Soft, nontender. Bowel sounds heard in all quadrants. EXTREMITIES: Without cyanosis, clubbing. Improving edema. It is now about 1 to 2+. CENTRAL NERVOUS SYSTEM: AAO x3. Cranial nerves 2 through 12 intact. Improving deconditioning. IMPRESSION: 1. Chronic diastolic congestive heart failure, improving. 2. Chronic kidney disease, stage III, improving. 3. Lower extremity edema, likely multifactorial. 4. Atrial fibrillation, rate controlled. 5. Coronary artery disease without angina. 6. Hypertension. 7. Dyslipidemia. 8. Constipation. PLAN: 1. Give her extra dose of warfarin 5 mg today. 2. Increase somewhat of fluid restriction to 2 L per day. 3. Milk of magnesia 30 mL p.o. b.i.d. 4. Continue other medications. 5. Five heart healthy diet. 6. DVT and stress ulcer prophylaxis. She is on warfarin. 7. Extra dose of warfarin today since INR is 1.7. 8. Continue physical therapy. 9. Routine laboratory values. 10. No family at bedside. Job ID: [id number]
[2018-09-02] MEDS: Warfarin Sodium 3 MG TAB PO SCH (17:38)
[2018-09-02] MEDS: Mometasone Furoate 120 PUFF 220 MCG INH SCH (18:32)
[2018-09-02] MEDS: Lorazepam 0.5 MG TAB PO PRN (21:10)
[2018-09-02] MEDS: Pravastatin Sodium 20 MG TAB PO SCH (21:11)
[2018-09-03 05:28] LABS: INR-International Normal Ratio 1.8; Prothrombin Time 20.5 SEC (12.0-14.7)
[2018-09-03] MEDS: FLUoxetine HCl 20 MG CAP PO SCH (08:24)
[2018-09-03] MEDS: Anastrozole 1 MG TAB PO SCH (08:24)
[2018-09-03] MEDS: Docusate 100 MG CAP PO SCH ×2 (08:24→19:59)
[2018-09-03] MEDS: Calcium Carbonate + Vit D 1 TAB PO SCH (08:24)
[2018-09-03] MEDS: Potassium Chloride 20 MEQ TAB PO SCH (08:24)
[2018-09-03] MEDS: Furosemide 80 MG TAB PO SCH (08:24)
[2018-09-03] MEDS ORDERED: Warfarin Sodium 5 MG TAB PO SCH (13:15)
--- NOTE | 2018-09-03 13:48 | PRG ---
DATE OF SERVICE: 09/03/2018 SUBJECTIVE: Ms. Gusman is doing well. She is happy that she is getting more fluids per day. She also had a good bowel movement. No family at bedside. She is happy with her progress. OBJECTIVE: VITAL SIGNS: She is afebrile. Heart rate 65, respirations are 20, oxygen saturation 96% on room air, and blood pressure 118/53. CARDIOVASCULAR SYSTEM: S1 and S2 plus. RESPIRATORY SYSTEM: Normal vesicular breath sounds. ABDOMEN: Soft, obese, and nontender. Bowel sounds heard in all quadrants. EXTREMITIES: Without cyanosis or clubbing, 1 to 2+ edema CENTRAL NERVOUS SYSTEM: AAO x3. Cranial nerves 2 through 12 intact. Improving deconditioning. LABORATORY DATA: Her INR is 1.8 today. IMPRESSION: 1. Atrial fibrillation. 2. [id number] diastolic congestive failure, improving. 3. Improving deconditioning. 4. Resolved constipation. 5. Resolved hypokalemia. 6. Chronic kidney disease stage 3. 7. Coronary artery disease. 8. Hypertension. 9. Dyslipidemia. PLAN: 1. Continue current medications, but give her an extra dose of warfarin 5 mg today. 2. Bowel regimen. 3. Heart healthy diet. 4. DVT and stress ulcer prophylaxis. 5. Decubitus precautions. 6. Routine laboratory values. 7. Physical therapy. 8. Discussed with the patient in detail. All questions were answered. Job ID: [id number]
[2018-09-03] MEDS: Warfarin Sodium 3 MG TAB PO SCH (17:11)
[2018-09-03] MEDS: Mometasone Furoate 120 PUFF 220 MCG INH SCH (17:12)
[2018-09-03] MEDS: Lorazepam 0.5 MG TAB PO PRN (19:58)
[2018-09-03] MEDS: Pravastatin Sodium 20 MG TAB PO SCH (19:59)
[2018-09-04 05:13] LABS: Prothrombin Time 22.4 SEC (12.0-14.7)
[2018-09-04] MEDS: Calcium Carbonate + Vit D 1 TAB PO SCH (08:32)
[2018-09-04] MEDS: Furosemide 80 MG TAB PO SCH (08:32)
[2018-09-04] MEDS: FLUoxetine HCl 20 MG CAP PO SCH (08:32)
[2018-09-04] MEDS: Potassium Chloride 20 MEQ TAB PO SCH (08:32)
[2018-09-04] MEDS: Docusate 100 MG CAP PO SCH ×2 (08:32→19:56)
[2018-09-04] MEDS: Anastrozole 1 MG TAB PO SCH (08:32)
[2018-09-04] MEDS: Warfarin Sodium 3 MG TAB PO SCH (17:28)
[2018-09-04] MEDS: Mometasone Furoate 120 PUFF 220 MCG INH SCH (18:26)
[2018-09-04] MEDS: Lorazepam 0.5 MG TAB PO PRN (19:55)
[2018-09-04] MEDS: Pravastatin Sodium 20 MG TAB PO SCH (19:56)
[2018-09-05 05:24] LABS: INR-International Normal Ratio 1.8; Prothrombin Time 20.6 SEC (12.0-14.7)
[2018-09-05 05:33] LABS: Anion Gap 13 mmol/L (10-20); BUN (Urea Nitrogen) 17 mg/dL (9.8-20.1); Calc. Creatinine Clearance 113 mL/min (70-130); Calcium 8.5 mg/dL (7.8-10.44); Carbon Dioxide 26 mmol/L (23-31); Chloride 103 mmol/L (98-107); Estimated GFR-MDRD 71; Glucose 76 mg/dL (83-110); Potassium 3.9 mmol/L (3.5-5.1); Sodium 138 mmol/L (136-145)
--- NOTE | 2018-09-05 08:25 | RAD ---
Chest AP view INDICATION: Shortness of breath and CHF exacerbation COMPARISON: July 31, 2018 FINDINGS: Lungs:The lungs are clear Cardiac silhouette pulmonary vasculature:Stable moderate cardiomegaly. Pulmonary vasculature appears within normal limits. Pleural spaces:No pleural effusion or pneumothorax is demonstrated. Upper abdomen:No abnormality seen. Osseous structures: No acute osseous abnormality. Surgical clips are seen within the right axilla. Dual-lead pacemaker seen overlying left chest wall. IMPRESSION: Stable moderate cardiomegaly. No radiographic evidence suggest overt CHF.
[2018-09-05] MEDS: Furosemide 80 MG TAB PO SCH (08:33)
[2018-09-05] MEDS: FLUoxetine HCl 20 MG CAP PO SCH (08:33)
[2018-09-05] MEDS: Docusate 100 MG CAP PO SCH ×2 (08:33→21:29)
[2018-09-05] MEDS: Potassium Chloride 20 MEQ TAB PO SCH (08:33)
[2018-09-05] MEDS: Calcium Carbonate + Vit D 1 TAB PO SCH (08:33)
[2018-09-05] MEDS: Anastrozole 1 MG TAB PO SCH (08:33)
[2018-09-05] MEDS ORDERED: Warfarin Sodium 3 MG TAB PO SCH (09:17)
--- NOTE | 2018-09-05 09:58 | PRG ---
DATE OF SERVICE: 09/05/2018 SUBJECTIVE: Ms. Gusman had an episode of shortness of breath yesterday. Her vital signs were stable. Her lung examination was clear at the time. I did tell nursing to get a chest x-ray, BMP, and BNP. Her renal function is back to normal. She has gained about 5 pounds. She also wanted to drink more fluids and now is on a 2000 mL liquid restriction. Chest x-ray is unremarkable. I advised her that I will add 40 mg of Lasix in the afternoon to see if that helps as she does not want to reduce her fluid intake. She is also using a RADHA hose. OBJECTIVE: VITAL SIGNS: She is afebrile. Heart rate 69, respirations 18, oxygen saturation 95% on room air, blood pressure 131/58. CARDIOVASCULAR SYSTEM: S1, S2 plus. RESPIRATORY SYSTEM: Normal vesicular breath sounds. ABDOMEN: Soft, nontender, and obese. Bowel sounds heard in all quadrants. EXTREMITIES: Without cyanosis, clubbing, 1+ edema. CENTRAL NERVOUS SYSTEM: AAO x3. Cranial nerves 2 through 12 intact. Improving deconditioning. LABORATORY VALUES: Sodium 138, potassium 3.9, BUN and creatinine 17 and 0.93. BNP is 664. INR is fluctuating at 1.82 and 1.8. We will adjust her warfarin dosing. IMPRESSION: 1. Improving diastolic congestive heart failure. 2. Atrial fibrillation. 3. Obesity. 4. Deconditioning. 5. Resolved renal insufficiency. 6. Coronary artery disease. 7. Hypertension. 8. Dyslipidemia. PLAN: 1. Adjust warfarin dosing. 2. Continue heart healthy diet. 3. Add Lasix 40 mg at 2:00 p.m. 4. Recheck laboratory values in the morning. 5. Daily weights. 6. Continue therapy. 7. Discussed with the patient in detail. All questions answered. Job ID: [id number]
[2018-09-05] MEDS ORDERED: Furosemide 40 MG TAB PO SCH (14:00)
[2018-09-05] MEDS ORDERED: Warfarin Sodium 5 MG TAB PO SCH (17:00)
[2018-09-05] MEDS ORDERED: Warfarin Sodium 2 MG TAB PO SCH (17:00)
[2018-09-05] MEDS: Mometasone Furoate 120 PUFF 220 MCG INH SCH (18:03)
[2018-09-05] MEDS: Pravastatin Sodium 20 MG TAB PO SCH (21:28)
[2018-09-05] MEDS: Lorazepam 0.5 MG TAB PO PRN (21:29)
[2018-09-05 23:06] VITALS: BMI 47.9
[2018-09-06 05:27] LABS: INR-International Normal Ratio 2.1; Prothrombin Time 23.6 SEC (12.0-14.7)
[2018-09-06 05:35] LABS: Anion Gap 11 mmol/L (10-20); BUN (Urea Nitrogen) 14 mg/dL (9.8-20.1); Calc. Creatinine Clearance 109 mL/min (70-130); Calcium 8.5 mg/dL (7.8-10.44); Carbon Dioxide 26 mmol/L (23-31); Chloride 102 mmol/L (98-107); Estimated GFR-MDRD 70; Glucose 77 mg/dL (83-110); Potassium 3.3 mmol/L (3.5-5.1); Sodium 136 mmol/L (136-145)
[2018-09-06 08:32] VITALS: BP 135/63; TEMP 98.2
[2018-09-06] MEDS: Calcium Carbonate + Vit D 1 TAB PO SCH (08:37)
[2018-09-06] MEDS: Docusate 100 MG CAP PO SCH (08:37)
[2018-09-06] MEDS: Anastrozole 1 MG TAB PO SCH (08:37)
[2018-09-06] MEDS: Furosemide 80 MG TAB PO SCH (08:38)
[2018-09-06] MEDS: Potassium Chloride 20 MEQ TAB PO SCH (08:38)
[2018-09-06] MEDS: FLUoxetine HCl 20 MG CAP PO SCH (08:38)
[2018-09-06] MEDS ORDERED: Potassium Chloride 20 MEQ TAB PO SCH (09:00)
--- NOTE | 2018-09-07 03:35 | DIS ---
DATE OF ADMISSION: 08/23/2018 DATE OF DISCHARGE: 09/06/2018 PRINCIPAL DIAGNOSIS: Acute on chronic diastolic congestive heart failure, requiring therapy. SECONDARY DIAGNOSES: 1. Resolving acute renal failure. 2. Paroxysmal atrial fibrillation. 3. Coronary artery disease. 4. Hypertension. 5. Dyslipidemia. 6. Gastroesophageal reflux disease. 7. Osteoarthritis. 8. Mild intermittent asthma. 9. Depression and anxiety. 10. History of breast cancer. 11. Morbid obesity with BMI of 46. 12. Severe mitral valve regurgitation. 13. Severe tricuspid regurgitation. COMPLICATIONS: None. ADVERSE REACTIONS: None. PROCEDURES: None. CONSULTATIONS: Physical Therapy and Occupational Therapy. HOSPITAL COURSE: The patient was admitted with heart failure and significant deconditioning as well as acute renal failure. She required Milrinone infusion to help with her diuresis and maintenance of her blood pressure. Here, she has been on p.o. Lasix and has done well. She was decreased from Lasix 80 mg b.i.d. to 80 mg daily, but then we noticed that her renal function is normalizing, but also a slight weight gain of 5 pounds, so her dose was adjusted to 80 mg in the morning and 40 in the afternoon. Her potassium replacement was also adjusted. She has done well with therapy and was deemed stable for discharge. Apparently, family members were there at all times. Home health has also been arranged for physical therapy, penitentiary visits and to do lab draw. She is scheduled to get a PT/INR done on Sunday as well as a BMP. She normally apparently was taking 2 tablets of 5 mg of warfarin on 2 days and then 1 mg other days. I advised her to just take 1-1/2 tablets of Coumadin 5 mg which equals 7.5 mg daily. Discussed with her son and her other family members. She apparently does not have a preference on home health and that she has not used any one before. She stated a name of someone, which I have never heard of and I advised her that it is better for me to use someone that I have experience with and she stated that she does not have any perforans at all and then wanted me to choose one for her. I advised her that home health will do her lab draws at home. PHYSICAL EXAMINATION: VITAL SIGNS: On the day of discharge, she is afebrile, heart rate is 67, respirations 18, oxygen saturation 97% on room air, blood pressure 135/63. CARDIOVASCULAR SYSTEM: S1-S2 plus. RESPIRATORY SYSTEM: Normal vesicular breath sounds. ABDOMEN: Soft, nontender. Bowel sounds in all quadrants, obese. EXTREMITIES: Without cyanosis, clubbing, 1+ edema. Pressure stockings in place. CENTRAL NERVOUS SYSTEM: AAO x3. Cranial nerves 2 through 12 intact. Improved deconditioning. PLAN: Discharge to home today. Arrange for rolling walker per therapy recommendation. Reviewed the list of home health and it is not even up to date. There are lot of home health agencies names which are missing. I stated that I have a good experience with [facility], [facility] and [facility] and she stated pretty much useful, what I wanted, so discussed with Case Management and referral sent to [facility]. Prescriptions for her Lasix and potassium have be sent into [facility]. She has all her medications, reviewed her bottles with her and her son. TIME SPENT: Total time spent on this discharge 40 minutes. Job ID: [id number]
== END 2018-09-06 11:09 | disposition home health service (06) | DRG 291 ==
LOC: NAV ACUTE 15:40
PROVIDERS: ADMIT Internal Medicine; ATTEND Internal Medicine
DX: I13.0 Hypertensive heart and chronic kidney disease with heart failure and stage 1 through stage 4 chronic kidney disease, or unspecified chronic kidney disease (principal); I50.33 Acute on chronic diastolic (congestive) heart failure; N17.9 Acute kidney failure, unspecified; E87.1 Hypo-osmolality and hyponatremia; Z68.42 Body mass index [BMI] 45.0-49.9, adult; N18.3 Chronic kidney disease, stage 3 (moderate); E87.6 Hypokalemia; K59.09 Other constipation; I42.9 Cardiomyopathy, unspecified; I25.10 Atherosclerotic heart disease of native coronary artery without angina pectoris; E78.5 Hyperlipidemia, unspecified; K21.9 Gastro-esophageal reflux disease without esophagitis; M19.90 Unspecified osteoarthritis, unspecified site; D64.9 Anemia, unspecified; J45.20 Mild intermittent asthma, uncomplicated; F32.9 Major depressive disorder, single episode, unspecified; E66.01 Morbid (severe) obesity due to excess calories; I08.1 Rheumatic disorders of both mitral and tricuspid valves; R53.81 Other malaise; R53.1 Weakness; I48.0 Paroxysmal atrial fibrillation; Z96.653 Presence of artificial knee joint, bilateral; Z95.0 Presence of cardiac pacemaker; Z79.01 Long term (current) use of anticoagulants; Z85.3 Personal history of malignant neoplasm of breast; Z90.711 Acquired absence of uterus with remaining cervical stump; Z90.11 Acquired absence of right breast and nipple; Z88.0 Allergy status to penicillin; Z88.1 Allergy status to other antibiotic agents; Z88.8 Allergy status to other drugs, medicaments and biological substances
CPT/HCPCS: 36415; 71045; 80048; 83880; 84132; 85610; Q0162

== ENCOUNTER 2018-09-16 07:07 | Emergency (ER) | payer MEDICARE ==
[2018-09-16] MEDS ORDERED: Ondansetron PF 4 MG/2 ML Vial ONE (07:48)
[2018-09-16 07:54] LABS: ALT (SGPT) 56 U/L (8-55); AST (SGOT) 142 U/L (5-34); Albumin 3.1 g/dL (3.4-4.8); Alkaline Phosphatase 97 U/L (40-150); Anion Gap 19 mmol/L (10-20); BUN (Urea Nitrogen) 36 mg/dL (9.8-20.1); Bilirubin, Total 1.3 mg/dL (0.2-1.2); Calc. Creatinine Clearance 0 mL/min (70-130); Calcium 9.2 mg/dL (7.8-10.44); Carbon Dioxide 20 mmol/L (23-31); Chloride 101 mmol/L (98-107); Estimated GFR-MDRD 28; Globulin 3.6 g/dL (2.4-3.5); Glucose 71 mg/dL (83-110); Potassium 5.4 mmol/L (3.5-5.1); Protein, Total 6.7 g/dL (6.0-8.3); Sodium 135 mmol/L (136-145)
[2018-09-16 07:57] LABS: Band 5 % (5-11); Eosinophils 2 % (0-10); Hemoglobin 9.3 g/dL (12.0-16.0); Hypochromia MODERATE=16-30 cells (100X) (0-5/hpf); Lymphocytes 36 % (21-51); MDiff Complete? YES; Mean Corpuscular HGB CONC 29.9 g/dL (32.0-36.0); Mean Corpuscular Hemoglobin 22.3 pg (27.0-31.0); Mean Corpuscular Volume 74.5 fL (78.0-98.0); Mean Platelet Volume 6.1 fL (7.4-10.4); Metamyelocyte 2 % (0-0); Microcytosis SLIGHT = 6-15 cells (100X) (0-5/hpf); Monocytes 4 % (0-10); Neutrophil 51 % (42-75); Nucleated RBC 2 % (0); Platelet Count 305 thou/uL (130-400); Platelet Morphology Comment Appears Adequate; Red Blood Cell (RBC) Count 4.16 mill/uL (4.20-5.40); White Blood Cell (WBC) Count 4.8 thou/uL (4.8-10.8)
[2018-09-16] MEDS ORDERED: Dextrose 50% Abboject 50 ML SYRINGE ONE (08:05)
[2018-09-16] MEDS ORDERED: Insulin Regular 300 UNITS/3 ML VIAL ONE (08:06)
--- NOTE | 2018-09-16 08:34 | RAD ---
CHEST 1 VIEW: HISTORY: Dyspnea. COMPARISON: 09/05/2018. FINDINGS: Minimal cardiomegaly. Left ICD. Monitor leads overlie the chest. Surgical clips in the right axill a region. No confluent pneumonia, overt edema, or pleural effusion. IMPRESSION: Stable chest. Mild cardiomegaly. Atherosclerosis of the aorta. Left implantable cardioverter defib rillator. POS: C
== END 2018-09-16 09:15 | disposition short-term general hospital (02) ==
LOC: NAV ERS 07:07
DX: I11.0 Hypertensive heart disease with heart failure (principal); I50.9 Heart failure, unspecified; D64.9 Anemia, unspecified; E78.5 Hyperlipidemia, unspecified; N28.9 Disorder of kidney and ureter, unspecified; I48.91 Unspecified atrial fibrillation; Z79.01 Long term (current) use of anticoagulants; Z79.899 Other long term (current) drug therapy
CPT/HCPCS: 71045; 80053; 83880; 84484; 85025; 93005; 94760; 96374; 96375; J1815; J2405

== ENCOUNTER 2018-10-01 21:37 | Emergency (ER) | payer MEDICARE ==
[2018-10-01] MEDS ORDERED: Bacitracin Zinc 1 Packet ONE (22:32)
--- NOTE | 2018-10-01 22:32 | CT ---
CT brain. HISTORY: Weakness pain. Noncontrast enhanced CT images of the brain obtained. There is diffuse cortical atrophy seen. No evidence of acute intracranial masses, hemorrhages, strokes or contusion seen. IMPRESSION: Cortical atrophy otherwise unremarkable CT brain.
--- NOTE | 2018-10-01 22:40 | CT ---
CT cervical spine. HISTORY: Fall and pain. Axial images are obtained with coronal and sagittal reconstructions. Multilevel cervical changes of spondylosis seen. No evidence of acute fractures seen. IMPRESSION: multilevel changes of spondylosis without evidence of acute fractures.
== END 2018-10-01 23:05 | disposition home or self-care (01) ==
LOC: NAV ERS 21:37
DX: S90.412A Abrasion, left great toe, initial encounter (principal); M79.602 Pain in left arm; I10 Essential (primary) hypertension; F41.9 Anxiety disorder, unspecified; F32.9 Major depressive disorder, single episode, unspecified; E78.5 Hyperlipidemia, unspecified; M19.90 Unspecified osteoarthritis, unspecified site; I48.91 Unspecified atrial fibrillation; Z87.891 Personal history of nicotine dependence; Z79.899 Other long term (current) drug therapy; Z79.01 Long term (current) use of anticoagulants; X50.1XXA Overexertion from prolonged static or awkward postures, initial encounter
CPT/HCPCS: 70450; 72125; 90471

== ENCOUNTER 2018-10-04 02:34 | Emergency (ER) | payer MEDICARE ==
[2018-10-04 04:07] LABS: Hemoglobin 10.6 g/dL (12.0-16.0); Mean Corpuscular HGB CONC 29.3 g/dL (32.0-36.0); Mean Corpuscular Hemoglobin 21.8 pg (27.0-31.0); Mean Corpuscular Volume 74.5 fL (78.0-98.0); Mean Platelet Volume 6.3 fL (7.4-10.4); Platelet Count 222 thou/uL (130-400); Red Blood Cell (RBC) Count 4.86 mill/uL (4.20-5.40)
[2018-10-04 04:20] LABS: ALT (SGPT) 32 U/L (8-55); AST (SGOT) 69 U/L (5-34); Albumin 3.5 g/dL (3.4-4.8); Alkaline Phosphatase 110 U/L (40-150); Anion Gap 22 mmol/L (10-20); BUN (Urea Nitrogen) 66 mg/dL (9.8-20.1); Bilirubin, Total 1.6 mg/dL (0.2-1.2); Calc. Creatinine Clearance 0 mL/min (70-130); Calcium 9.2 mg/dL (7.8-10.44); Carbon Dioxide 23 mmol/L (23-31); Chloride 90 mmol/L (98-107); Estimated GFR-MDRD 21; Glucose 88 mg/dL (83-110); Magnesium 2.7 mg/dL (1.6-2.6); Potassium 6.2 mmol/L (3.5-5.1); Protein, Total 7.5 g/dL (6.0-8.3); Sodium 129 mmol/L (136-145)
[2018-10-04 04:21] LABS: Anisocytosis SLIGHT = 6-15 cells (100X) (0-5/hpf); Hypochromia MODERATE=16-30 cells (100X) (0-5/hpf); Lymphocytes 16 % (21-51); MDiff Complete? YES; Microcytosis SLIGHT = 6-15 cells (100X) (0-5/hpf); Monocytes 9 % (0-10); Neutrophil 73 % (42-75); Platelet Morphology Comment Appears Adequate; Polychromasia SLIGHT = 2-3 cells (100X) (0-2/hpf); Reactive Lymphocytes 2 % (0-10); Target Cells SLIGHT = 2-5 cells (100X) (0-1/hpf)
[2018-10-04] MEDS ORDERED: Calcium Gluc 4.6 MEQ/10 ML (100 MG/ML) ONE (04:55)
[2018-10-04] MEDS ORDERED: Furosemide 40 MG/4 ML VIAL ONE (05:14)
[2018-10-04] MEDS ORDERED: Sodium Chloride 0.9% 500 ML ONE (05:14)
[2018-10-04] MEDS ORDERED: Ondansetron PF 4 MG/2 ML Vial ONE (05:19)
[2018-10-04] MEDS ORDERED: Insulin Regular 300 UNITS/3 ML VIAL ONE (05:45)
[2018-10-04] MEDS ORDERED: Dextrose 50% Abboject 50 ML SYRINGE ONE (05:45)
[2018-10-04] MEDS ORDERED: Sodium Bicarb 50 MEQ/50 ML Abboject 8.4% SYRINGE ONE (06:26)
[2018-10-04] MEDS ORDERED: Sodium Bicarb 5 MEQ/10 ML Abboject 4.2% SYRINGE ONE (06:26)
--- NOTE | 2018-10-04 07:52 | RAD ---
XR Chest 1 View Portable HISTORY: Dyspnea COMPARISON: 09/16/2018 FINDINGS: Minimal cardiomegaly and left basilar device are stable. There is continued elevation the r ight hemidiaphragm. No lobar consolidation, pneumothoraces, zacarias pulmonary edema or pleural effusions are seen. Surgical clips in the right axilla are unchanged. IMPRESSION: No radiographic evidence of acute cardiopulmonary process.
== END 2018-10-04 06:45 | disposition short-term general hospital (02) ==
LOC: NAV ERS 02:34
DX: N17.9 Acute kidney failure, unspecified (principal); E87.1 Hypo-osmolality and hyponatremia; E87.5 Hyperkalemia; I10 Essential (primary) hypertension; I48.91 Unspecified atrial fibrillation; E86.0 Dehydration; F41.9 Anxiety disorder, unspecified; F32.9 Major depressive disorder, single episode, unspecified; M19.90 Unspecified osteoarthritis, unspecified site; Z87.891 Personal history of nicotine dependence; Z79.01 Long term (current) use of anticoagulants; Z79.899 Other long term (current) drug therapy
CPT/HCPCS: 71045; 80053; 83735; 83880; 85025; 93005; 94760; 96361; 96374; 96375; J1815; J1940; J2405; J7050